=== PATIENT | female | born 1995 | race African-American/Black ===

== ENCOUNTER 2017-01-09 17:27 | Emergency (ER) | payer OTHER, MEDICAID ==
[~2017-01-09] VITALS: Ht 165.1 cm; Wt 60.0 kg
[~2017-01-09 17:27] MED LIST: ACYC800T PO; IBUP600 PO; OXYC1SOL5 PO; PREN0.01 PO; PREN1CAP PO
[2017-01-09 17:28] VITALS: BP 113/85; PULSE 113; RESP 20; TEMP 99; O2SAT 100
[2017-01-09] MEDS ORDERED: ACETAMINOPHEN 325 MG TAB PO ONE (18:15)
[2017-01-09 18:20] LABS: BACTERIA, URINE RARE /hpf; BLOOD, URINE NEG (NEG); COMMENT (UR) CULT NOT INDICATED; CULTURE IF INDICATED CULT NOT INDICATED; GLUCOSE,URINE NEG (NEG); HYALINE CAST, URINE 1 /lpf (RARE); KETONE, URINE TRACE mg/dL (NEG); MUCUS URINE FEW /lpf (OCC); NITRITE,URINE NEG (NEG); PH, URINE 5.5 (5.0-8.5); SQUAMOUS EPITHELIAL CELL URINE 2 /hpf (0-5); URINE COLOR YELLOW (YELLW/STRAW)
[2017-01-09 18:48] LABS: BETA HCG QUANT 1571 MIU/ML (0-5)
--- NOTE | 2017-01-09 19:18 | RADRPT ---
EXAM DATE/TIME: 01/09/2017 18:20 [facility] COMPARISON: No previous studies available for comparison. INDICATIONS : Pelvic pain with . LAB(S): Beta-hC MEDICAL HISTORY : . Miscarriage. SURGICAL HISTORY : section. ENCOUNTER: Initial ACUITY: 1 day PAIN SCORE: 6/10 LOCATION: Bilateral pelvis MEASUREMENTS: UTERUS: 10.1 x 7.7 x 4.0 cm ENDOMETRIAL STRIPE: 14 mm RIGHT OVARY: 3.4 x 2.4 x 1.4 cm LEFT OVARY: 4.5 x 3.5 x 3.2 cm FREE FLUID: Yes Trace amount in posterior cul de sac. CROWN RUMP LENGTH: Non visualized. = WKS DAYS FHR: Non visualized. BPM FINDINGS: UTERUS: The uterus has a bicornuate appearance. There is a 3 cm cystic area seen in the left horn. There is a tiny 2 mm area of fluid or cystic change in the right horn. An intrauterine gestation cannot be conf irmed at this size. RIGHT OVARY: Ovary contains no mass or significant cystic lesion. LEFT OVARY: There is a 3.2 x 3.1 x 2.3 cm complex predominantly cystic mass seen at the left adnexa. MISCELLANEOUS: There is minimal free fluid seen in the cul-de-sac. CONCLUSION: 1. An intrauterine gestation is not confirmed. There are tiny cystic areas seen in the endometrial ca vity. 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 2. 3.2 cm complex, cystic mass the left adnexa. This is nonspecific. A prominent follicle, corpus lut eal cyst, or even ectopic although this appearance. Franco Wayne MD on January 09, 2017 at 19:10 Board Certified Radiologist. This report was verified electronically.
--- NOTE | 2017-01-09 19:49 | PD ---
HPI Chief Complaint: Related Problem Time Seen by Provider: 17:44 Travel History International Travel<30 days: No Contact w/Intl Traveler<30days: No Traveled to known affect area: No History of Present Illness HPI 21-year-old female that presents to the ED for evaluation of abdominal pain. Per patient is about 5 weeks . She denies any vaginal bleeding or discharge. Per patient the pain is 6 out of 10. Per patient he comes and goes. 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 She states that she is not sure she wants to keep this . She denies any nausea or vomiting. She denies any bowel movement issues. No urinary issues. Has not seen anybody for this. She has no MATERIAL SPREADER at this time. She did try to see a CARPET OR RUG LAYER HELPER on her own but they're all booked per patient. Has an allergy to shellfish. PFSH Past Medical History Cardiovascular Problems: Yes Diminished Hearing: No ?: LMP: 12/04/16 : 4 Para: 2 Miscarriage: 1 Past Surgical History Section: Yes Social History Alcohol Use: No Tobacco Use: No Substance Use: No Allergies-Medications (Allergen,Severity, Reaction): Coded Allergies: shellfish derived (Unverified Allergy, Severe, swelling of throat and mouth, 10/08/16) Reported Meds & Prescriptions Reported Meds & Active Scripts Active Monistat 3 Vaginal Cream (Miconazole 3 Vaginal Cream) 4 % Cream 1 Appl VAGINAL HS Oxycodone/Acetaminophen 5-325 mg/5Ml (Oxycodone W/ Acetaminophen) 5 mg/325 mg Tab 1 Tab PO Q4H PRN Review of Systems Except as stated in HPI: all other systems reviewed are Neg Physical Exam Narrative GENERAL: SKIN: Warm and dry. HEAD: Atraumatic. Normocephalic. EYES: Pupils equal and round. No scleral icterus. No injection or drainage. ENT: No nasal bleeding or discharge. Mucous membranes pink and moist. Tongue is midline. No uvula deviation. NECK: Trachea midline. No JVD. CARDIOVASCULAR: Regular rate and rhythm. No murmurs, S3, S4. RESPIRATORY: No accessory muscle use. Clear to auscultation. Breath sounds equal bilaterally. GASTROINTESTINAL: Abdomen soft, non-tender, nondistended. Hepatic and splenic margins not palpable. Pelvic exam: Seen with female nurse present. No obvious skin lesions noted. Patient does have some whitish vaginal discharge coming from the clitoris. No adnexal deformity but she does have some tenderness to deep palpation on the pelvic area. MUSCULOSKELETAL: Extremities without clubbing, cyanosis, or edema. No obvious deformities. Full range of motion of the upper and lower extremities bilaterally. 2+ pulses bilaterally. NEUROLOGICAL: Awake and alert. No obvious cranial nerve deficits. Motor grossly within normal limits. Five out of 5 muscle strength in the arms and legs. Normal speech. PSYCHIATRIC: Appropriate mood and affect; insight and judgment normal. Data Data Last Documented VS Vital Signs Date Time Temp Pulse Resp B/P (MAP) Pulse Ox O2 Delivery O2 Flow Rate FiO2 01/09/17 17:28 99.0 113 20 113/85 (94) 100 Room Air Orders Orders Beta Hcg (Quant/Titer) (01/09/17 17:44) Gc And Chlamydia Pcr (01/09/17 17:44) Us Pelvis (Ques Pr/Ect)W Trans (01/09/17 ) Wet Prep Profile (01/09/17 17:44) Urinalysis - C+S If Indicated (01/09/17 17:44) Ed Urine Pregnancytest Poc (01/09/17 17:44) Acetaminophen (Tylenol) (01/09/17 18:15) Ed Discharge Order (01/09/17 19:52) Labs Laboratory Tests Test 01/09/17 18:05 01/09/17 19:25 Urine Color YELLOW Urine Turbidity CLEAR Urine pH 5.5 Urine Specific [place] 1.015 Urine Protein NEG mg/dL Urine Glucose (UA) NEG mg/dL Urine Ketones TRACE mg/dL Urine Occult Blood NEG Urine Nitrite NEG Urine Bilirubin NEG Urine Urobilinogen LESS THAN 2.0 MG/DL Urine Leukocyte Esterase NEG Urine RBC 1 /hpf Urine WBC 3 /hpf Urine Squamous Epithelial Cells 2 /hpf Urine Bacteria RARE /hpf Urine Hyaline Casts 1 /lpf Urine Mucus FEW /lpf Microscopic Urinalysis Comment CULT NOT INDICATED Human Chorionic Gonadotropin, Quant 1571 MIU/ML Clue Cells (Wet Prep) NONE SEEN Vaginal Trichomonas (Wet Prep) NONE SEEN Vaginal Yeast (Wet Prep) PRESENT MDM Medical Decision Making Medical Screen Exam Complete: Yes Emergency Medical Condition: Yes Medical Record Reviewed: Yes Interpretation(s) UA negative HCG of 1500s Last Impressions Pelvis Ultrasound 01/09/17 0000 Signed Impressions: Service Date/Time: December 18:20 - CONCLUSION: 1. An intrauterine gestation is not confirmed. There are tiny cystic areas seen in the endometrial cavity. 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 2. 3.2 cm complex, cystic mass the left adnexa. This is nonspecific. A prominent follicle , corpus luteal cyst, or even ectopic although this appearance. Franco Wayne MD wet prep positive for yeast Differential Diagnosis Pelvic pain versus vaginal discharge versus vaginal infection versus vaginitis versus ectopic Narrative Course 21-year-old female that presents to the ED for evaluation of pelvic pain. Patient was properly examined and was found to have signs and symptoms consistent with appears to be pelvic pain. Patient is . Ultrasound and labs were ordered. Pelvic exam did show some vaginal discharge. Wet prep was sent for this. Labs and imaging show unclear if I feel versus ectopic. Case was discussed with my attending Dr. Hopper who was made aware of findings and recommends speaking with OB hospitalist. Spoke with Dr. Sawyer who recommends recheck in 48 hours for repeat beta as well as ultrasound. Patient was told this and agrees with plan. Wet prep showed Diagnosis Primary Impression: Pelvic pain affecting Qualified Codes: O26.891 - Other specified related conditions, first trimester; R10.2 - Pelvic and perineal pain Additional Impressions: Yeast vaginitis Left ovarian cyst Patient Instructions: General Instructions Additional Instructions: Get rechecked in 2 days with an ultrasound and beta hcg. Your HCG was 1500s. F/ u with PCP. Take med as prescribed. Tylenol for pain. See ED if worsening symptoms. Med/Other Pt SpecificInfo: Prescription(s) given Scripts Miconazole 3 Vaginal Cream (Monistat 3 Vaginal Cream) 4 % Cream 1 APPL VAGINAL HS for Infection, #1 BOX 0 Refills Prov: Nadine Hopper DO 01/09/17 Disposition: 01 DISCHARGE HOME Condition: Stable Evans Valentin Jan 09, 2017 19:49
[2017-01-09] MEDS ORDERED: MICO1CRE2 VAGINAL (19:51)
[2017-01-09 22:22] LABS: CHLAMYDIA PCR NOT DETECTED (NOT DETECT); NEISSERIA PCR NOT DETECTED (NOT DETECT)
== END 2017-01-09 20:20 | disposition home or self-care (01) ==
LOC: NEPD 17:27
DX: O34.81 Maternal care for other abnormalities of pelvic organs, first trimester (principal); N83.202 Unspecified ovarian cyst, left side; N76.0 Acute vaginitis; Z3A.01 Less than 8 weeks gestation of pregnancy; Z34.91 Encounter for supervision of normal pregnancy, unspecified, first trimester
CPT/HCPCS: 76700; 76817; 81001; 84702; 84703; 87210; 87491; 87591; 99284

== ENCOUNTER 2017-01-11 17:00 | Emergency (ER) | payer OTHER, MEDICAID ==
[~2017-01-11] VITALS: Ht 165.1 cm; Wt 58.0 kg
[~2017-01-11 17:00] MED LIST changes: -ACYC800T PO; -IBUP600 PO; +MICO1CRE2 VAGINAL; -PREN0.01 PO; -PREN1CAP PO
[2017-01-11 17:02] VITALS: BP 112/74; PULSE 108; RESP 16; TEMP 98.7; O2SAT 100
[2017-01-11] MEDS ORDERED: OXYC1TAB35 PO (17:55)
--- NOTE | 2017-01-11 18:08 | PD ---
HPI Chief Complaint: Related Problem Time Seen by Provider: 17:41 Travel History International Travel<30 days: No Contact w/Intl Traveler<30days: No Traveled to known affect area: No History of Present Illness HPI 21-year-old female complains of low abdominal pain and pelvic pain. Patient is about 5 weeks by date. Patient was seen in emergency room 2 days ago with low abdominal pain and pelvic pain. Patient denies any vaginal discharge or bleeding. Beta-hCG 1571. Pelvic ultrasound with transvaginal shows tiny cystic area in the endometrial cavity. Patient had bicornuate uterus. 3.2 cm complex cystic mass left adnexa. Patient was advised to follow-up with personal physician. Patient was seen by personal physician yesterday and advised to go back to ED for evaluation. Patient states that she had persistent pain on the lower abdomen suprapubic area. Patient states that she passed a small amount of whitish tissue this morning. Patient denies any vaginal bleeding. Patient denies any dysuria or frequency. Patient denies any fever chills. Patient denies any back pain. PFSH Past Medical History Cardiovascular Problems: Yes Diminished Hearing: No ?: : 4 Para: 2 Miscarriage: 1 Past Surgical History Section: Yes Social History Alcohol Use: No Tobacco Use: No Substance Use: No Allergies-Medications (Allergen,Severity, Reaction): Coded Allergies: shellfish derived (Unverified Allergy, Severe, swelling of throat and mouth, 01/11/17) Reported Meds & Prescriptions Reported Meds & Active Scripts Active Monistat 3 Vaginal Cream (Miconazole 3 Vaginal Cream) 4 % Cream 1 Appl VAGINAL HS Reported Oxycodone-Acetaminophen 7.5-325 mg Tab 1 Tab PO Q6H PRN Review of Systems General / Constitutional: No: Fever Eyes: No: Visual changes HENT: No: Headaches Cardiovascular: No: Chest Pain or Discomfort Respiratory: No: Shortness of Breath Gastrointestinal: Positive: Abdominal Pain Genitourinary: Positive: Pelvic Pain, No: Dysuria Musculoskeletal: No: Pain Skin: No Rash Neurologic: No: Weakness Psychiatric: No: Depression Endocrine: No: Polydipsia Hematologic/Lymphatic: No: Easy Bruising Physical Exam Narrative GENERAL: Well-nourished, well-developed patient. SKIN: Focused skin assessment warm/dry. HEAD: Normocephalic. EYES: No scleral icterus. No injection or drainage. NECK: Supple, trachea midline. No JVD or lymphadenopathy. CARDIOVASCULAR: Regular rate and rhythm without murmurs, gallops, or rubs. RESPIRATORY: Breath sounds equal bilaterally. No accessory muscle use. GASTROINTESTINAL: Abdomen soft, nondistended. Patient has mild tenderness on palpation suprapubic area. No rebound tenderness. No mass. MUSCULOSKELETAL: No cyanosis, or edema. BACK: Nontender without obvious deformity. No CVA tenderness. Neurologic exam normal. Data Data Last Documented VS Vital Signs Date Time Temp Pulse Resp B/P (MAP) Pulse Ox O2 Delivery O2 Flow Rate FiO2 01/11/17 17:02 98.7 108 16 112/74 (87) 100 Room Air Orders Orders Beta Hcg (Quant/Titer) (01/11/17 17:52) Iv Access Insert/Monitor (01/11/17 17:52) Ecg Monitoring (01/11/17 17:52) Us Pelvis (Ques Pr/Ect)W Trans (01/11/17 17:52) MDM Medical Decision Making Medical Screen Exam Complete: Yes Emergency Medical Condition: Yes Differential Diagnosis Differential diagnosis including threatened AB, incomplete AB, completed AB, ectopic . Narrative Course 21-year-old female with low abdominal pelvic pain. Patient is about 5 weeks by dates. Ultrasound and beta hCG done 2 days ago inconclusive for ectopic . Daren Hampton MD Jan 11, 2017 18:08
[2017-01-11 19:08] LABS: BETA HCG QUANT 3051 MIU/ML (0-5)
--- NOTE | 2017-01-11 19:32 | RADRPT ---
EXAM DATE/TIME: 01/11/2017 18:54 [facility] COMPARISON: US PELVIS (QUEST PREG/ECTOPIC) W/TRANSVAG, January 09, 2017, 18:20. INDICATIONS : Pelvic pain. LAB(S): Beta-hC MEDICAL HISTORY : . Miscarriage. SURGICAL HISTORY : section. ENCOUNTER: Subsequent ACUITY: 1 day PAIN SCORE: 6/10 LOCATION: Bilateral pelvis MEASUREMENTS: UTERUS: 9.1 x 7.7 x 4.6 cm ENDOMETRIAL STRIPE: 12 mm RIGHT OVARY: 3.0 x 2.2 x 1.5 cm LEFT OVARY: 3.2 x 3.0 x 2.9 cm FREE FLUID: No FINDINGS: Bicornuate uterus again noted. On the left, a 0.5 x 0.6 x 0.6 cm gestational sac is now evident, too early to date. No perceptible yolk sac or pole at this time. Right ovary within normal limits. 2.5 cm cyst again seen of the left ovary, smaller in the interim. CONCLUSION: 1. Bicornuate uterus. Early gestational sac now seen within the uterine cavity on the left. This is t oo early to date. 2. The left ovarian cyst is smaller, likely a corpus luteal cyst. Ectopic is considered unlikely. 3. Normal right ovary. 4. No free fluid. Franco Shanks MD on January 11, 2017 at 19:28 Board Certified Radiologist. This report was verified electronically.
--- NOTE | 2017-01-11 19:47 | PD ---
Data Data Last Documented VS Vital Signs Date Time Temp Pulse Resp B/P (MAP) Pulse Ox O2 Delivery O2 Flow Rate FiO2 01/11/17 17:02 98.7 108 16 112/74 (87) 100 Room Air Orders Orders Beta Hcg (Quant/Titer) (01/11/17 17:52) Iv Access Insert/Monitor (01/11/17 17:52) Ecg Monitoring (01/11/17 17:52) Us Pelvis (Ques Pr/Ect)W Trans (01/11/17 17:52) Ed Discharge Order (01/11/17 19:47) Mandatory Outpatient Referral (01/11/17 20:00) Labs Laboratory Tests Test 01/11/17 18:00 Human Chorionic Gonadotropin, Quant 3051 MIU/ML [facility] Medical Record Reviewed: Yes Supervised Visit with CLEMENCIA: No Diagnosis Primary Impression: Pelvic pain affecting Qualified Codes: O26.891 - Other specified related conditions, first trimester; R10.2 - Pelvic and perineal pain Additional Impression: Normal IUP (intrauterine ) on ultrasound Qualified Codes: Z34.91 - Encounter for supervision of normal , unspecified, first trimester Referrals: Marketing Support Specialist 2 days Additional Instruction: Med/Other Pt SpecificInfo: Prescription(s) given Scripts Vit-Iron Carbonyl ( Plus Iron 29-1 mg) 29 Mg Iron-1 Mg Tab 1 TAB PO DAILY for Nutritional Supplement, #30 TAB 3 Refills Prov: Bobby Cano MD 01/11/17 Disposition: 01 DISCHARGE HOME Condition: Stable Bobby Cano MD Jan 11, 2017 19:47
[2017-01-11] MEDS ORDERED: PREN29TA PO (20:14)
== END 2017-01-11 20:15 | disposition home or self-care (01) ==
LOC: NEPE 17:00
DX: O26.891 Other specified pregnancy related conditions, first trimester (principal); R10.2 Pelvic and perineal pain
CPT/HCPCS: 76700; 76817; 84702

== ENCOUNTER 2017-01-21 17:49 | Emergency (ER) | payer OTHER ==
[~2017-01-21] VITALS: Ht 165.1 cm; Wt 60.0 kg
[~2017-01-21 17:49] MED LIST changes: -OXYC1SOL5 PO; +OXYC1TAB35 PO; +PREN29TA PO
[2017-01-21 17:52] VITALS: BP 125/70; PULSE 109; RESP 16; TEMP 98.4; O2SAT 100
--- NOTE | 2017-01-21 18:35 | PD ---
HPI Chief Complaint: Related Problem Time Seen by Provider: 18:05 Travel History International Travel<30 days: No Contact w/Intl Traveler<30days: No Traveled to known affect area: No History of Present Illness HPI 21-year-old approximately 7 week female presents to the emergency room for the third time in 12 days for evaluation of pelvic cramping. The last 2 times she presented, she did not have any vaginal bleeding but she has had some spotting that started today. Patient had 2 transvaginal ultrasounds on January 09 of January 11 with the latter showing intrauterine . She opted to terminate the and was given the name of an OB to follow up with. The OB told her that they do not perform abortions. She found another OB to follow up with but cannot see that person for 5-6 weeks. PFSH Past Medical History Medical History: Denies Significant Hx Cardiovascular Problems: Yes Diminished Hearing: No Tetanus Vaccination: < 5 Years ?: LMP: 7 WEEKS : 3 Para: 2 Miscarriage: 1 Past Surgical History Surgical History: No Previous Surgery Section: Yes Social History Alcohol Use: No Tobacco Use: No Substance Use: No Allergies-Medications (Allergen,Severity, Reaction): Coded Allergies: shellfish derived (Unverified Allergy, Severe, swelling of throat and mouth, 01/21/17) Reported Meds & Prescriptions Reported Meds & Active Scripts Active Plus Iron 29-1 mg ( Vit-Iron Carbonyl) 29 Mg Iron-1 Mg Tab 1 Tab PO DAILY Monistat 3 Vaginal Cream (Miconazole 3 Vaginal Cream) 4 % Cream 1 Appl VAGINAL HS Reported Oxycodone-Acetaminophen 7.5-325 mg Tab 1 Tab PO Q6H PRN Review of Systems Except as stated in HPI: all other systems reviewed are Neg Physical Exam Narrative GENERAL: Well-nourished, well-developed female in no acute distress. Afebrile. Ambulatory. SKIN: Focused skin assessment warm/dry. HEAD: Normocephalic. EYES: No scleral icterus. No injection or drainage. NECK: Supple, trachea midline. No JVD or lymphadenopathy. CARDIOVASCULAR: Regular rate and rhythm without murmurs, gallops, or rubs. RESPIRATORY: Breath sounds equal bilaterally. No accessory muscle use. GASTROINTESTINAL: Abdomen soft, non-tender, nondistended. Data Data Last Documented VS Vital Signs Date Time Temp Pulse Resp B/P (MAP) Pulse Ox O2 Delivery O2 Flow Rate FiO2 01/21/17 17:52 98.4 109 16 125/70 (88) 100 Room Air MDM Medical Decision Making Medical Screen Exam Complete: Yes Emergency Medical Condition: Yes Medical Record Reviewed: Yes Differential Diagnosis Pelvic pain affecting , ovarian cyst, ectopic unlikely, spontaneous Narrative Course 21-year-old proximally 7 week female presents to the emergency room for evaluation of vaginal spotting and cramping. Patient has had 2 ultrasounds and beta hCGs drawn in the past 12 days with confirmed intrauterine . She followed up with an OB requesting an but OB would not perform it. Bedside ultrasound shows very early intrauterine in bicornate uterus with heartbeat of 140 bpm. She was reassured that spotting in early can be caused by many things the most concerning of which is ectopic which she has had ruled out. She was told to follow up with another OB or [facility] to proceed with and take Tylenol and Motrin for pain. Informed that the emergency room does not routinely provide abortions. She understands and agrees to plan. Diagnosis Primary Impression: Threatened miscarriage in early Referrals: Primary Care Physician Additional Instructions: Tylenol for pain. Follow-up with OB or [facility]. Disposition: 01 DISCHARGE HOME Condition: Stable Jill Ball Jan 21, 2017 18:35
[2017-01-30] MEDS ORDERED: DOXY10TA PO (10:23)
== END 2017-01-21 19:00 | disposition home or self-care (01) ==
LOC: NEPD 17:49
DX: O20.0 Threatened abortion (principal); Z3A.01 Less than 8 weeks gestation of pregnancy
CPT/HCPCS: 99282

== ENCOUNTER 2017-02-10 10:36 | Emergency (ER) | payer MEDICAID, OTHER ==
[~2017-02-10] VITALS: Ht 165.1 cm; Wt 60.0 kg
[~2017-02-10 10:36] MED LIST changes: +DOXY10TA PO; -MICO1CRE2 VAGINAL; -OXYC1TAB35 PO; +TERC1SUP VAGINAL
[2017-02-10 10:54] VITALS: BP 137/55; PULSE 99; RESP 20; TEMP 97.6; O2SAT 99
[2017-02-10] MEDS ORDERED: SODIUM CHLOR 0.9% 1000 ML INJ 1,000 ML IV SCH (11:27)
[2017-02-10] MEDS ORDERED: ONDANSETRON HCL 4 MG/2 ML VIAL IVP ONE (11:30)
[2017-02-10] MEDS ORDERED: SODIUM CHLORIDE 0.9% FLUSH 10 ML FLUSH IV FLUSH PRN (11:30)
[2017-02-10] MEDS ORDERED: MORPHINE SULFATE 4 MG/ML INJ IV PUSH ONE (11:30)
--- NOTE | 2017-02-10 11:39 | PD ---
HPI . Palpitations Chief Complaint: Cardiac Complaint Time Seen by Provider: 11:19 Travel History International Travel<30 days: No Contact w/Intl Traveler<30days: No Traveled to known affect area: No History of Present Illness HPI This patient presents with chief complaint of feeling lightheaded and dizzy and having palpitations. Onset was shortly prior to presentation. She states that she is 10 weeks and that she developed right upper quadrant abdominal pain earlier today. She describes sharp pain which she rates 10/10. The pain waxes and wanes. She states that she subsequently developed the lightheadedness. 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 They checked her heart rate, blood pressure and sugar. She was found to be tachycardic and was subsequently sent to us for evaluation. The patient reports a history of tachycardia. The etiology of the tachycardia is unknown to her. [facility] Past Medical History Cardiovascular Problems: Yes (SINUS TACHYCARDIA, CHEST PAIN) Diminished Hearing: No Tetanus Vaccination: < 5 Years ?: : 2 Para: 2 Miscarriage: 1 Past Surgical History Section: Yes Genitourinary Surgery: Yes (c- section) Social History Alcohol Use: No Tobacco Use: No Substance Use: No Allergies-Medications (Allergen,Severity, Reaction): Coded Allergies: shellfish derived (Unverified Allergy, Severe, swelling of throat and mouth, 02/10/17) Reported Meds & Prescriptions Reported Meds & Active Scripts Active Review of Systems Except as stated in HPI: all other systems reviewed are Neg General / Constitutional: No: Fever, Chills HENT: Positive: Lightheadedness Cardiovascular: Positive: Palpitations Gastrointestinal: Positive: Abdominal Pain, No: Nausea, Vomiting, Diarrhea Genitourinary: No: Urgency, Frequency, Dysuria Physical Exam Narrative GENERAL: Awake and alert and in no acute distress. SKIN: warm/dry. HEAD: Normocephalic. Atraumatic. EYES: Pupils equal and round. No scleral icterus. No injection or drainage. ENT: No nasal bleeding or discharge. Mucous membranes pink and moist. NECK: Trachea midline. Full range of motion without pain.. CARDIOVASCULAR: Sinus tachycardia at about 125. Heart sounds are normal. RESPIRATORY: No accessory muscle use. Clear to auscultation. Breath sounds equal bilaterally. GASTROINTESTINAL: Abdomen soft. Epigastric tenderness which was not reproducible. That is, she was tender when I palpated her epigastrium initially but then I could not elicit any further tenderness on repeat exam. Bowel sounds present. Nondistended. : No CVA tenderness. MUSCULOSKELETAL: No obvious deformities. NEUROLOGICAL: Awake and alert. No obvious cranial nerve deficits. Motor grossly within normal limits. Normal speech. PSYCHIATRIC: Appropriate mood and affect; insight and judgment normal. Data Data Last Documented VS Vital Signs Date Time Temp Pulse Resp B/P (MAP) Pulse Ox O2 Delivery O2 Flow Rate FiO2 02/10/17 11:21 99 02/10/17 10:54 97.6 20 137/55 (82) 99 Orders Orders Complete Blood Count With Diff (02/10/17 11:27) Comprehensive Metabolic Panel (02/10/17 11:27) Lipase (02/10/17 11:27) Urinalysis - C+S If Indicated (02/10/17 11:27) Us Abdomen Gallbladder (02/10/17 ) Iv Access Insert/Monitor (02/10/17 11:27) Ecg Monitoring (02/10/17 11:27) Oximetry (02/10/17 11:27) Morphine Inj (Morphine Inj) (02/10/17 11:30) Ondansetron Inj (Zofran Inj) (02/10/17 11:30) Sodium Chlor 0.9% 1000 Ml Inj (Ns 1000 M (02/10/17 11:27) Sodium Chloride 0.9% Flush (Ns Flush) (02/10/17 11:30) Labs Laboratory Tests Test 02/10/17 11:44 02/10/17 11:48 Urine Color YELLOW Urine Turbidity CLEAR Urine pH 8.0 Urine Specific [place] 1.018 Urine Protein TRACE mg/dL Urine Glucose (UA) NEG mg/dL Urine Ketones NEG mg/dL Urine Occult Blood NEG Urine Nitrite NEG Urine Bilirubin NEG Urine Urobilinogen LESS THAN 2.0 MG/DL Urine Leukocyte Esterase NEG Urine RBC LESS THAN 1 /hpf Urine WBC 4 /hpf Urine Squamous Epithelial Cells 1 /hpf Urine Mucus FEW /lpf Microscopic Urinalysis Comment CULT NOT INDICATED White Blood Count 7.4 TH/MM3 Red Blood Count 4.22 MIL/MM3 Hemoglobin 11.6 GM/DL Hematocrit 34.5 % Mean Corpuscular Volume 81.7 FL Mean Corpuscular Hemoglobin 27.4 PG Mean Corpuscular Hemoglobin Concent 33.5 % Red Cell Distribution Width 13.1 % Platelet Count 243 TH/MM3 Mean Platelet Volume 9.3 FL Neutrophils (%) (Auto) 64.2 % Lymphocytes (%) (Auto) 26.8 % Monocytes (%) (Auto) 7.1 % Eosinophils (%) (Auto) 1.5 % Basophils (%) (Auto) 0.4 % Neutrophils # (Auto) 4.8 TH/MM3 Lymphocytes # (Auto) 2.0 TH/MM3 Monocytes # (Auto) 0.5 TH/MM3 Eosinophils # (Auto) 0.1 TH/MM3 Basophils # (Auto) 0.0 TH/MM3 CBC Comment DIFF FINAL Differential Comment Blood Urea Nitrogen 6 MG/DL Creatinine 0.46 MG/DL Random Glucose 73 MG/DL Total Protein 7.1 GM/DL Albumin 3.6 GM/DL Calcium Level 8.6 MG/DL Alkaline Phosphatase 83 U/L Aspartate Amino Transf (AST/SGOT) 18 U/L Alanine Aminotransferase (ALT/SGPT) 25 U/L Total Bilirubin 1.0 MG/DL Sodium Level 134 MEQ/L Potassium Level 3.2 MEQ/L Chloride Level 101 MEQ/L Carbon Dioxide Level 25.2 MEQ/L Anion Gap 8 MEQ/L Estimat Glomerular Filtration Rate 207 ML/MIN Lipase 55 U/L MDM Medical Decision Making Medical Screen Exam Complete: Yes Emergency Medical Condition: Yes Medical Record Reviewed: Yes (this patient was seen here on 01/09, 01/11 and with pelvic pain. She has had 2 ultrasounds which showed an IUP.) Differential Diagnosis Differential diagnosis of abdominal pain includes but is not limited to gastritis, pancreatitis, hepatitis, gastroenteritis, gallbladder disease, constipation, urinary retention, UTI, peptic ulcer disease, diverticulitis or appendicitis Differential diagnosis of tachycardia includes but is not limited to PSVT, atrial fibrillation with a rapid ventricular response, sinus tachycardia (due to hypovolemia, anemia, thyrotoxicosis, PE) Narrative Course This patient presents with the chief complaint now of tachycardia but with the chief complaint earlier today of right upper quadrant abdominal pain. She is 10 weeks . Her tachycardia is sinus and is most likely related either to pain or to anxiety. I have ordered an ultrasound of her gallbladder. Routine labs have been ordered. She'll be treated with IV morphine and Zofran. Vital Signs Date Time Temp Pulse Resp B/P (MAP) Pulse Ox O2 Delivery O2 Flow Rate FiO2 02/10/17 11:21 99 02/10/17 10:54 97.6 99 20 137/55 (82) 99 CBC & BMP Diagram 02/10/17 11:48 Total Protein 7.1, Albumin 3.6, Calcium Level 8.6, Alkaline Phosphatase 83, Aspartate Amino Transf (AST/SGOT) 18, Alanine Aminotransferase (ALT/SGPT) 25, Total Bilirubin 1.0 UA neg. US neg. The history, exam, diagnostic testing, and current condition do not suggest any significant pathology to warrant further testing, continued ED treatment, admission, or surgical evaluation at this point. No EMC was found. The patient 's condition is stable and appropriate for discharge. Diagnosis Primary Impression: Sinus tachycardia Additional Impressions: Anxiety Right upper quadrant abdominal pain Intrauterine Patient Instructions: Abdominal Pain (ED), Anxiety (DC), General Instructions Disposition: 01 DISCHARGE HOME Condition: Stable Sharon Madden MD Feb 10, 2017 11:39
[2017-02-10 12:17] LABS: AUTOMATED NEUTROPHIL # 4.8 TH/MM3 (1.8-7.7); BASOPHIL % 0.4 % (0.0-2.0); EOSINOPHIL # 0.1 TH/MM3 (0-0.4); EOSINOPHIL % 1.5 % (0.0-4.0); HEMATOCRIT 34.5 % (35.0-46.0); HEMOGLOBIN 11.6 GM/DL (11.6-15.3); LYMPH % 26.8 % (9.0-44.0); MEAN CELL VOLUME 81.7 FL (80.0-100.0); MEAN CORPUSCULAR HEMOGLOBIN 27.4 PG (27.0-34.0); MEAN CORPUSCULAR HGB CONC 33.5 % (32.0-36.0); MEAN PLATELET VOLUME 9.3 FL (7.0-11.0); MONO % 7.1 % (0.0-8.0); MONOCYTE # 0.5 TH/MM3 (0-0.9); NEUT % 64.2 % (16.0-70.0); PLATELET COUNT 243 TH/MM3 (150-450); RED BLOOD COUNT 4.22 MIL/MM3 (4.00-5.30); RED CELL DISTRIBUTION WIDTH 13.1 % (11.6-17.2); WHITE BLOOD COUNT 7.4 TH/MM3 (4.0-11.0)
[2017-02-10 12:38] LABS: ALBUMIN 3.6 GM/DL (3.4-5.0); AST (GOT) 18 U/L (15-37); BICARBONATE 25.2 MEQ/L (21.0-32.0); BLOOD UREA NITROGEN 6 MG/DL (7-18); CALCIUM 8.6 MG/DL (8.5-10.1); CHLORIDE 101 MEQ/L (98-107); CREATININE 0.46 MG/DL (0.50-1.00); GLOMERULAR FILTRATION RATE 207 ML/MIN (>89); GLUCOSE,RANDOM 73 MG/DL (74-106); LIPASE 55 U/L (73-393); SODIUM (NA) 134 MEQ/L (136-145)
[2017-02-10 12:39] LABS: ALT (GPT) 25 U/L (10-53)
[2017-02-10 12:41] LABS: ALKALINE PHOSPHATASE 83 U/L (45-117); TOTAL PROTEIN 7.1 GM/DL (6.4-8.2)
[2017-02-10 12:47] LABS: BILIRUBIN, URINE NEG (NEG); BLOOD, URINE NEG (NEG); GLUCOSE,URINE NEG (NEG); KETONE, URINE NEG (NEG); MUCUS URINE FEW /lpf (OCC); NITRITE,URINE NEG (NEG); SQUAMOUS EPITHELIAL CELL URINE 1 /hpf (0-5); URINE COLOR YELLOW (YELLW/STRAW); URINE LEUKOCYTE ESTERASE NEG (NEG)
--- NOTE | 2017-02-10 13:14 | RADRPT ---
EXAM DATE/TIME: 02/10/2017 12:01 [facility] COMPARISON: No previous studies available for comparison. INDICATIONS : Right upper quadrant pain. MEDICAL HISTORY : . Tachycardia. SURGICAL HISTORY : section. ENCOUNTER: Initial ACUITY: 1 day PAIN SCORE: 1/10 LOCATION: Right upper quadrant MEASUREMENTS: LIVER: 16.2 cm length COMMON DUCT: 3 mm RIGHT KIDNEY: 11.7 x 5.9 x 5.5 cm FINDINGS: LIVER: Normal echotexture without focal lesion or ductal dilatation. COMMON DUCT: No intraluminal mass or stone visualized. GALLBLADDER: Contains no stones, demonstrates no wall thickening or pericholecystic fluid. PANCREAS: The visualized portions are within normal limits. RIGHT KIDNEY: No evidence of hydronephrosis, stone, or mass. CONCLUSION: Negative exam. Jose Garcia MD on February 10, 2017 at 13:12 Board Certified Radiologist. This report was verified electronically.
== END 2017-02-10 14:40 | disposition home or self-care (01) ==
LOC: NEPE 10:36
DX: O26.891 Other specified pregnancy related conditions, first trimester (principal); R00.0 Tachycardia, unspecified; R10.11 Right upper quadrant pain; O99.341 Other mental disorders complicating pregnancy, first trimester; F41.9 Anxiety disorder, unspecified; Z3A.10 10 weeks gestation of pregnancy
CPT/HCPCS: 76705; 80053; 81001; 83690; 85025; 96374; 96375; 99285; J2270; J2405; J7030

== ENCOUNTER 2017-03-17 14:34 | Emergency (ER) | payer OTHER ==
[2017-03-17] MEDS: SODIUM CHLOR 0.9% 1000 ML INJ 1,000 ML IV (15:15)
== END 2017-03-17 15:34 | disposition home or self-care (01) ==
LOC: NEPD 14:34
DX: O99.519 Diseases of the respiratory system complicating pregnancy, unspecified trimester (principal); J11.1 Influenza due to unidentified influenza virus with other respiratory manifestations; Z3A.00 Weeks of gestation of pregnancy not specified
CPT/HCPCS: 99282

== ENCOUNTER 2017-03-31 19:43 | Emergency (ER) | payer OTHER ==
[~2017-03-31] VITALS: Ht 165.1 cm; Wt 55.0 kg
[~2017-03-31 19:43] MED LIST changes: -DOXY10TA PO; -PREN29TA PO; +PROM25TA10 PO; -TERC1SUP VAGINAL
--- NOTE | 2017-03-31 20:15 | PD.CONS ---
HPI Chief Complaint Patient fell at work and hit her right hip Date Seen: Mar 31, 2017 Time Seen: 20:10 Travel History International Travel<30 Days: No Contact w/Intl Traveler<30Days: No Known Affected Area: No History of Present Illness HPI This is 21-year-old black female at 17 weeks as to [facility]. That she was at work type symptoms water fell and hit her right hip. She's had no bleeding or leakage of fluid. She does have a tender sore hip. heart tones are in the 150s tonight Weeks Gestation: 17 Para: 1 : 2 History Obstetric History Obstetric History 2 vaginal deliveries Social History Alcohol Use: No Tobacco Use: No Substance Abuse: No Allergies-Medications (Allergen,Severity, Reaction): Coded Allergies: shellfish derived (Unverified Allergy, Severe, swelling of throat and mouth, 03/17/17) Home Meds Active Scripts Promethazine (Phenergan) 25 Mg Tablet, 25 MG PO Q6H Y for NAUSEA OR VOMITING, # 20 TAB 0 Refills Prov:Miguel Velazquez MD 03/05/17 Vit W/ Fe Polysacch C (Vitafol Ultra 29-0.6-0.4-200 mg) 29 Mg Iron-1 Mg -200 Mg Cap Prov:Miguel Velazquez MD 03/05/17 Review of Systems General / Constitutional: No: Fever, Weight Gain, Chills, Other Eyes: No: Diploplia, Blurred Vision, Visual changes, Pain, Photophobia HENT: No: Headaches, Vertigo, Lightheadedness Cardiovascular: No: Irregular Rhythm, Chest Pain or Discomfort, Palpitations, Tachycardia, Syncope, Varicosities, Edema, Cyanosis Respiratory: No: Cough, Short of Breath, Other Gastrointestinal: No: Nausea, Vomiting, Diarrhea Genitourinary: No: Decreased Urinary Output, Oliguria Musculoskeletal: Pain, No: Limited ROM, Weakness, Cramping, Edema Skin: No Rash, No Itching, No Dryness, No Lumps, No Change in Pigmentation, No Change in Nails, No Alopecia, No Lesions Neurologic: No: Weakness, Dizziness, Syncope, Focal Abnormalities, Coordination Problem, Headache, Slurred Speech, Seizures Psychiatric: No: Depression, Suicidal Ideations, Homicidal Ideation Endocrine: No: Heat Intolerance, Cold Intolerance, Polydipsia, Polyuria, Other Physical Exam Narrative GENERAL: Well-nourished, well-developed patient. SKIN: Warm and dry. HEAD: Normocephalic and atraumatic. EYES: No scleral icterus. No injection or drainage. ENT: No nasal drainage noted. Mucous membranes pink. Airway patent. NECK: Supple, trachea midline. No JVD. CARDIOVASCULAR: Regular rate and rhythm without murmurs, gallops, or rubs. RESPIRATORY: Breath sounds equal bilaterally. No accessory muscle use. BREASTS: Bilateral exam showed no masses , no retractions, no nipple discharge. 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 BACK: Nontender without obvious deformity. No CVA tenderness. NEUROLOGICAL: Awake and alert. Motor and sensory grossly within normal limits. Five out of 5 muscle strength in all muscle groups. Normal speech. MDM Interpretation(s) 21-year-old black female at 17 weeks who fell at work and hit her right hip. The fetus is doing well heart tones 150s she has no pain no pelvic problem no bleeding or leakage of fluid. She has a tender right hip its tip very tender to touch is where she fell and and landed Plan Plan to send the patient down stairs the main ER for an x-ray for hip make sure that some, Jacinda fracture or something needs to be evaluated for and obstetric standpoint there is no problem and Diagnosis: fall Disposition: EDGO-ED USE ONLY Condition: Stable Ronny Santos II, MD Mar 31, 2017 20:15
[2017-03-31 21:12] VITALS: BP 103/55; PULSE 94; RESP 18; TEMP 98.5; O2SAT 100
--- NOTE | 2017-03-31 21:33 | PD ---
HPI Chief Complaint: Fall Time Seen by Provider: 21:26 Travel History International Travel<30 days: No Contact w/Intl Traveler<30days: No Traveled to known affect area: No History of Present Illness HPI 21-year-old female at 17 weeks was sent here by the OB ED for x-ray of the right hip. Today she slipped and fell at work, landing directly on her right hip. Initially she was evaluated by Dr. Santos in the OB ED, cleared by their ED and sent here for x-ray imaging of the right hip. She reports pain in the lateral right hip which is aching and worse with ambulation. She denies any head injury. She denies any neck, back pain, abdominal pain, pain in the knees or the calves or the ankles or feet. She has no other complaints at this time. PFSH Past Medical History Anxiety: Yes Heart Rhythm Problems: Yes (tachycardia) Cardiovascular Problems: Yes (SINUS TACHYCARDIA, CHEST PAIN) Diminished Hearing: No Tetanus Vaccination: Unknown Influenza Vaccination: No ?: LMP: 12/04/2016 17 weeks : 2 Para: 2 Miscarriage: 1 Past Surgical History Section: Yes Genitourinary Surgery: Yes (c- section) Social History Alcohol Use: No Tobacco Use: No Substance Use: No Allergies-Medications (Allergen,Severity, Reaction): Coded Allergies: shellfish derived (Unverified Allergy, Severe, swelling of throat and mouth, 03/31/17) Reported Meds & Prescriptions Reported Meds & Active Scripts Active Phenergan (Promethazine HCl) 25 Mg Tablet 25 Mg PO Q6H PRN Vitafol Ultra 29-0.6-0.4-200 mg ( Vit W/ Fe Polysacch C) 29 Mg Iron-1 Mg -200 Mg Cap Review of Systems Except as stated in HPI: all other systems reviewed are Neg Physical Exam Narrative GENERAL: Well-developed well-nourished female in no acute distress SKIN: Warm and dry. There is no bruising or soft tissue swelling. HEAD: Atraumatic. Normocephalic. EYES: Pupils equal and round. No scleral icterus. No injection or drainage. ENT: No nasal bleeding or discharge. Mucous membranes pink and moist. NECK: Trachea midline. No JVD. CARDIOVASCULAR: Regular rate and rhythm. No murmur appreciated. RESPIRATORY: No accessory muscle use. Clear to auscultation. Breath sounds equal bilaterally. GASTROINTESTINAL: Abdomen soft, non-tender, nondistended. Hepatic and splenic margins not palpable. MUSCULOSKELETAL: No obvious deformities. There is point tenderness to palpation to the greater trochanter the right hip. The patient is full range of motion of the lower extremities. She has no tenderness to palpation to the iliac crest or lumbar spine. NEUROLOGICAL: Awake and alert. No obvious cranial nerve deficits. Motor grossly within normal limits. Normal speech. Data Data Last Documented VS Vital Signs Date Time Temp Pulse Resp B/P (MAP) Pulse Ox O2 Delivery O2 Flow Rate FiO2 03/31/17 21:12 98.5 94 18 103/55 (71) 100 Orders Orders Hip, Uni(Ap&Lat) W Ap Pelvis (03/31/17 ) [facility] Medical Decision Making Medical Screen Exam Complete: Yes Emergency Medical Condition: Yes Medical Record Reviewed: Yes Differential Diagnosis Trochanteric bursitis versus contusion versus fracture versus strain Narrative Course X-ray imaging of the pelvis/right hip was obtained revealing no acute bony abnormalities. The patient appears to have a contusion to her right hip. She is stable for discharge. Diagnosis Primary Impression: Contusion of right hip Patient Instructions: General Instructions Departure Forms: Tests/Procedures Additional Instructions: Take Tylenol for pain per dosing instructions on the bottle. Ice to the affected area several times a day 15 minutes at a time. Follow-up with primary care physician as needed and return for any emergent medical conditions. Med/Other Pt SpecificInfo: No Change to Meds Disposition: 01 DISCHARGE HOME Condition: Stable Johnathon Mack Mar 31, 2017 21:33
--- NOTE | 2017-03-31 22:09 | RADRPT ---
EXAM DATE/TIME: 03/31/2017 21:51 [facility] COMPARISON: No previous studies available for comparison. INDICATIONS : Hip and pelvic pain post fall. MEDICAL HISTORY : None. SURGICAL HISTORY : None. ENCOUNTER: Initial ACUITY: 1 day PAIN SCORE: 10/10 LOCATION: Right Hip and pelvis. FINDINGS: Examination of the right hip was performed with AP Pelvis. The primary and secondary trabecular rosibel patricia of the femoral neck is intact. The hip joint is of normal width without significant sclerosis or bony hypertrophy. The acetabulum is grossly intact. CONCLUSION: Normal examination for a patient of this age. No acute fracture or joint dislocation. Mane Glass MD on March 31, 2017 at 22:06 Board Certified Radiologist. This report was verified electronically.
[2017-04-01] MEDS ORDERED: TYLE325T PO (20:08)
== END 2017-03-31 21:07 | disposition left against medical advice (07) ==
LOC: HOBED 19:43
DX: O9A.212 Injury, poisoning and certain other consequences of external causes complicating pregnancy, second trimester (principal); S70.01XA Contusion of right hip, initial encounter; W01.0XXA Fall on same level from slipping, tripping and stumbling without subsequent striking against object, initial encounter; Z3A.17 17 weeks gestation of pregnancy
CPT/HCPCS: 73502; 99283

== ENCOUNTER 2017-04-01 14:13 | Emergency (ER) | payer OTHER ==
[~2017-04-01] VITALS: Ht 165.1 cm; Wt 56.4 kg
[2017-04-01 14:17] VITALS: BP 130/68; PULSE 119; RESP 20; TEMP 99.1; O2SAT 98
[2017-04-01] MEDS ORDERED: ACETAMINOPHEN 500 MG CPLT PO ONE (18:00)
--- NOTE | 2017-04-01 18:32 | PD ---
HPI Chief Complaint: Fall Time Seen by Provider: 17:39 Travel History International Travel<30 days: No Contact w/Intl Traveler<30days: No Traveled to known affect area: No History of Present Illness HPI 21yo F who is 17 weeks was sent here from her work for documentation after a slip and fall yesterday. Pt had slip and fell on her right hip at work yesterday and was seen by OB hospitalist Dr. Montano and had documented heart tone in the 150s. Pt was clear by Dr. Montano and sent to the ED for xray because of persistent pain. Pt had negative xray of right hip. However, she said that was not enough for workers compensation and her job needs an ultrasound and documentation today. Denies any head trauma, LOC, chest pain, sob, n/v, abdominal pain, vaginal bleeding. Pt said she had yeast and is already being treated for that. Said she has some bilateral lower back pain. PFSH Past Medical History Anxiety: Yes Heart Rhythm Problems: Yes (tachycardia) Cardiovascular Problems: Yes (SINUS TACHYCARDIA, CHEST PAIN) Diminished Hearing: No ?: : 2 Para: 2 Miscarriage: 1 Past Surgical History Section: Yes Genitourinary Surgery: Yes (c- section) Social History Alcohol Use: No Tobacco Use: No Substance Use: No Allergies-Medications (Allergen,Severity, Reaction): Coded Allergies: shellfish derived (Unverified Allergy, Severe, swelling of throat and mouth, 04/01/17) Reported Meds & Prescriptions Reported Meds & Active Scripts Active Phenergan (Promethazine HCl) 25 Mg Tablet 25 Mg PO Q6H PRN Vitafol Ultra 29-0.6-0.4-200 mg ( Vit W/ Fe Polysacch C) 29 Mg Iron-1 Mg -200 Mg Cap Review of Systems Except as stated in HPI: all other systems reviewed are Neg Physical Exam Narrative GENERAL: 21yo F in mild distress. SKIN: Focused skin assessment warm/dry. HEAD: Atraumatic. Normocephalic. EYES: Pupils equal and round. No scleral icterus. No injection or drainage. ENT: No nasal bleeding or discharge. Mucous membranes pink and moist. NECK: No midline cervical spine ttp. CARDIOVASCULAR: Regular rate and rhythm. No murmur appreciated. RESPIRATORY: No accessory muscle use. Clear to auscultation. Breath sounds equal bilaterally. GASTROINTESTINAL: Abdomen soft, non-tender, nondistended. No rebound tenderness or guarding. MUSCULOSKELETAL: Right hip: +TTP mid right femur with some edema. Sensation intact in bilateral lower extremities. Muscle strength normal. Distal pulses intact. BACK: No midline thoracic or lumbar ttp. Alcides lower paraspinal ttp L4-L5 bilateral. NEUROLOGICAL: Awake and alert. No obvious cranial nerve deficits. Motor grossly within normal limits. Normal speech. PSYCHIATRIC: Appropriate mood and affect; insight and judgment normal. Data Data Last Documented VS Vital Signs Date Time Temp Pulse Resp B/P (MAP) Pulse Ox O2 Delivery O2 Flow Rate FiO2 04/01/17 16:41 Room Air 04/01/17 14:17 99.1 119 20 130/68 (88) 98 Orders Orders Urinalysis - C+S If Indicated (04/01/17 14:46) Ed Urine Pregnancytest Poc (04/01/17 14:46) Beta Hcg (Quant/Titer) (04/01/17 14:46) Acetaminophen (Tylenol) (04/01/17 18:00) Ed Poc Ultrasound (04/01/17 ) Femur (Ap & Lat/2vws) (04/01/17 ) Labs Laboratory Tests Test 04/01/17 15:12 04/01/17 18:50 Human Chorionic Gonadotropin, Quant 23016 MIU/ML Urine Color YELLOW Urine Turbidity CLEAR Urine pH 7.5 Urine Specific [place] 1.016 Urine Protein TRACE mg/dL Urine Glucose (UA) 150 mg/dL Urine Ketones 10 mg/dL Urine Occult Blood NEG Urine Nitrite NEG Urine Bilirubin NEG Urine Urobilinogen 4.0 MG/DL Urine Leukocyte Esterase NEG Urine RBC 1 /hpf Urine WBC 1 /hpf Urine Squamous Epithelial Cells 1 /hpf Microscopic Urinalysis Comment CULT NOT INDICATED MDM Medical Decision Making Medical Screen Exam Complete: Yes Emergency Medical Condition: Yes Differential Diagnosis Contusion vs. hairline fracture Narrative Course 21yo F who was evaluated yesterday for a slip and fall is here requesting ultrasound and imaging today for workers compensation. No focal neurologic deficits on exam. I explain the risks and benefits of xray and pt wants xray of right femur today for documentation so it was ordered. Said she would lose her job if she did not get it. Xray right femur demonstrates no evidence of fracture or dislocation. Pt given acetaminophen. Will do bedside US for documentation. Pt has no abdominal tenderness on exam and no complaint of vaginal bleeding. UA showed negative leukocyte. WBC 1. Culture not indicated. Pt ambulating in the ED. Bedside US documented. Return precautions given. Procedures Procedure Narrative Emergency Department Pelvic ultrasound was performed with patient consent. The curvilinear probe was used in the transverse and sagittal views within the suprapubic region revealing single intrauterine . heart rate was 148bpm. Diagnosis Primary Impression: Contusion of right hip Qualified Codes: S70.01XA - Contusion of right hip, initial encounter Patient Instructions: General Instructions Departure Forms: Tests/Procedures Additional Instructions: Please follow up with your OBGYN in 2-3 days. Please follow up with your primary care physician in 2-3 days. Return to the ED if symptoms worsen. Bedside ultrasound was performed and showed intrauterine with heart rate of 148bpm. + movement. Xray right femur showed no acute fracture or joint dislocation. Med/Other Pt SpecificInfo: Prescription(s) given Scripts Acetaminophen (Tylenol) 325 Mg Tab 650 MG PO Q6H Y for PAIN SCALE 1 TO 4, #20 TAB 0 Refills Prov: Arelis Aleman DO 04/01/17 Disposition: 01 DISCHARGE HOME Condition: Stable Arelis Aleman DO Apr 01, 2017 18:32
[2017-04-01 19:51] LABS: BILIRUBIN, URINE NEG (NEG); BLOOD, URINE NEG (NEG); GLUCOSE,URINE 150 mg/dL (NEG); KETONE, URINE 10 mg/dL (NEG); NITRITE,URINE NEG (NEG); PH, URINE 7.5 (5.0-8.5); SQUAMOUS EPITHELIAL CELL URINE 1 /hpf (0-5); URINE COLOR YELLOW (YELLW/STRAW); URINE LEUKOCYTE ESTERASE NEG (NEG)
[2017-04-01] MEDS ORDERED: TYLE325T PO (20:08)
--- NOTE | 2017-04-02 08:43 | RADRPT ---
EXAM DATE/TIME: 04/01/2017 18:03 [facility] COMPARISON: No previous studies available for comparison. INDICATIONS : Right femur pain after fall at work. MEDICAL HISTORY : None. SURGICAL HISTORY : None. ENCOUNTER: Initial ACUITY: 2 days PAIN SCORE: 10/10 LOCATION: Right distal femur. FINDINGS: Two view examination of the right femur demonstrates no evidence of fracture or dislocation. Bony mi neralization is normal. The soft tissue structures are intact. CONCLUSION: No acute fracture or joint dislocation. Mane Glass MD on April 01, 2017 at 18:15 Board Certified Radiologist. This report was verified electronically.
== END 2017-04-01 21:17 | disposition home or self-care (01) ==
LOC: NEPD 14:13
DX: O9A.212 Injury, poisoning and certain other consequences of external causes complicating pregnancy, second trimester (principal); S70.01XA Contusion of right hip, initial encounter; M54.5 Low back pain; W01.0XXA Fall on same level from slipping, tripping and stumbling without subsequent striking against object, initial encounter; Z3A.17 17 weeks gestation of pregnancy
CPT/HCPCS: 73552; 81001; 84702; 84703; 99283

== ENCOUNTER → 2017-05-06 | Outpatient (CLI) | payer OTHER ==
[~2017-05-06] MED LIST changes: +TYLE325T PO
== END ==
LOC: HPND 09:39
PROVIDERS: ATTEND Obstetrics & Gynecology
DX: O34.02 Maternal care for unspecified congenital malformation of uterus, second trimester (principal); O09.32 Supervision of pregnancy with insufficient antenatal care, second trimester; O34.211 Maternal care for low transverse scar from previous cesarean delivery; Q51.3 Bicornate uterus
CPT/HCPCS: 76805; 76817

== ENCOUNTER 2017-05-15 15:04 | Emergency (ER) | payer OTHER ==
[~2017-05-15] VITALS: Ht 165.1 cm; Wt 56.0 kg
[2017-05-15 15:06] VITALS: BP 101/72; PULSE 88; RESP 15; TEMP 98.8; O2SAT 100
[2017-05-15] MEDS ORDERED: SODIUM CHLORIDE 0.9% FLUSH 10 ML FLUSH IV FLUSH PRN (15:30)
[2017-05-15 15:42] VITALS: O2SAT 100
[2017-05-15] MEDS ORDERED: ACETAMINOPHEN 325 MG TAB PO ONE (16:00)
[2017-05-15] MEDS ORDERED: SODIUM CHLOR 0.9% 1000 ML INJ 1,000 ML IV ONE (16:00)
--- NOTE | 2017-05-15 16:01 | PD ---
HPI Chief Complaint: Dizziness Time Seen by Provider: 15:28 Travel History International Travel<30 days: No Contact w/Intl Traveler<30days: No Traveled to known affect area: No History of Present Illness HPI Patient is a 21-year-old female early presents emergency department for several vague complaints. Patient states she has had a mild headache, some dizziness and fatigue. She states she just feels weak all over and she has had some nausea as well. Mild nausea without vomiting. He states his symptoms have been going on for some time, she has not followed up with her CENTER LEAD CONSULTANT yet. Has been taking her vitamins, no smoking or drinking. States the symptoms are moderate, constant, associated signs and symptoms in context as above. Patient is 22 weeks , she is already had an ultrasound showing IUP. She has no complaints of abdominal pain nausea vomiting vaginal bleeding or vaginal discharge PFSH Past Medical History Anxiety: Yes Heart Rhythm Problems: Yes (tachycardia) Cardiovascular Problems: Yes (SINUS TACHYCARDIA, CHEST PAIN) Chest Pain: Yes Diminished Hearing: No Tetanus Vaccination: < 5 Years Influenza Vaccination: No ?: LMP: 12/04/16 : 2 Para: 2 Miscarriage: 1 Past Surgical History Section: Yes Genitourinary Surgery: Yes (c- section) Social History Alcohol Use: No Tobacco Use: No Substance Use: No Allergies-Medications (Allergen,Severity, Reaction): Coded Allergies: shellfish derived (Unverified Allergy, Severe, swelling of throat and mouth, 04/01/17) Reported Meds & Prescriptions Reported Meds & Active Scripts Active Tylenol (Acetaminophen) 325 Mg Tab 650 Mg PO Q6H PRN Phenergan (Promethazine HCl) 25 Mg Tablet 25 Mg PO Q6H PRN Vitafol Ultra 29-0.6-0.4-200 mg ( Vit W/ Fe Polysacch C) 29 Mg Iron-1 Mg -200 Mg Cap Review of Systems Except as stated in HPI: all other systems reviewed are Neg Physical Exam Narrative GENERAL: Well-developed well-nourished no obvious distress. Thin. SKIN: Focused skin assessment warm/dry. HEAD: Atraumatic. Normocephalic. EYES: Pupils equal and round. No scleral icterus. No injection or drainage. ENT: No nasal bleeding or discharge. Mucous membranes pink and moist. NECK: Trachea midline. No JVD. CARDIOVASCULAR: Regular rate and rhythm. No murmur appreciated. RESPIRATORY: No accessory muscle use. Clear to auscultation. Breath sounds equal bilaterally. GASTROINTESTINAL: Abdomen soft, non-tender, nondistended. Hepatic and splenic margins not palpable. MUSCULOSKELETAL: No obvious deformities. No clubbing. No cyanosis. No edema. NEUROLOGICAL: Awake and alert. No obvious cranial nerve deficits. Motor grossly within normal limits. Normal speech. PSYCHIATRIC: Appropriate mood and affect; insight and judgment normal. Data Data Last Documented VS Vital Signs Date Time Temp Pulse Resp B/P (MAP) Pulse Ox O2 Delivery O2 Flow Rate FiO2 05/15/17 15:42 100 Room Air 05/15/17 15:06 98.8 88 15 101/72 (82) Orders Orders Complete Blood Count With Diff (05/15/17 15:28) Comprehensive Metabolic Panel (05/15/17 15:28) Urinalysis - C+S If Indicated (05/15/17 15:28) Iv Access Insert/Monitor (05/15/17 15:28) Ecg Monitoring (05/15/17 15:28) Oximetry (05/15/17 15:28) Sodium Chloride 0.9% Flush (Ns Flush) (05/15/17 15:30) Electrocardiogram (05/15/17 15:28) Sodium Chlor 0.9% 1000 Ml Inj (Ns 1000 M (05/15/17 16:00) Acetaminophen (Tylenol) (05/15/17 16:00) Ed Discharge Order (05/15/17 16:59) Labs Laboratory Tests Test 05/15/17 15:35 White Blood Count 10.7 TH/MM3 Red Blood Count 4.12 MIL/MM3 Hemoglobin 11.6 GM/DL Hematocrit 34.2 % Mean Corpuscular Volume 82.9 FL Mean Corpuscular Hemoglobin 28.2 PG Mean Corpuscular Hemoglobin Concent 34.0 % Red Cell Distribution Width 13.3 % Platelet Count 253 TH/MM3 Mean Platelet Volume 9.8 FL Neutrophils (%) (Auto) 73.0 % Lymphocytes (%) (Auto) 19.8 % Monocytes (%) (Auto) 5.1 % Eosinophils (%) (Auto) 1.5 % Basophils (%) (Auto) 0.6 % Neutrophils # (Auto) 7.8 TH/MM3 Lymphocytes # (Auto) 2.1 TH/MM3 Monocytes # (Auto) 0.6 TH/MM3 Eosinophils # (Auto) 0.2 TH/MM3 Basophils # (Auto) 0.1 TH/MM3 CBC Comment DIFF FINAL Differential Comment Urine Color YELLOW Urine Turbidity CLEAR Urine pH 7.0 Urine Specific [place] 1.016 Urine Protein NEG mg/dL Urine Glucose (UA) NEG mg/dL Urine Ketones NEG mg/dL Urine Occult Blood NEG Urine Nitrite NEG Urine Bilirubin NEG Urine Urobilinogen LESS THAN 2.0 MG/DL Urine Leukocyte Esterase NEG Urine WBC 1 /hpf Urine Squamous Epithelial Cells 1 /hpf Urine Mucus FEW /lpf Microscopic Urinalysis Comment CULT NOT INDICATED Blood Urea Nitrogen 8 MG/DL Creatinine 0.50 MG/DL Random Glucose 63 MG/DL Total Protein 7.4 GM/DL Albumin 3.4 GM/DL Calcium Level 8.5 MG/DL Alkaline Phosphatase 72 U/L Aspartate Amino Transf (AST/SGOT) 15 U/L Alanine Aminotransferase (ALT/SGPT) 13 U/L Total Bilirubin 0.7 MG/DL Sodium Level 137 MEQ/L Potassium Level 3.3 MEQ/L Chloride Level 101 MEQ/L Carbon Dioxide Level 25.5 MEQ/L Anion Gap 11 MEQ/L Estimat Glomerular Filtration Rate 188 ML/MIN [facility] Medical Decision Making Medical Screen Exam Complete: Yes Emergency Medical Condition: Yes Differential Diagnosis Fatigue, electrolyte abnormality, dehydration, preeclampsia is considered but seems unlikely. Narrative Course Patient room to the emergency department, her initial workup here in the emergency department is reassuring. No proteinuria, blood pressure within normal limits. At this time she is a reassuring physical exam, Tylenol given for mild headache, normal saline bolus. She is feeling better. Discussed need follow-up with an [facility] CONSULTANT and symptomatic management, discussed care. She is stable for discharge. Discussed return to ED criteria Diagnosis Primary Impression: Fatigue Disposition: 01 DISCHARGE HOME Condition: Stable Adriano Stevenson MD May 15, 2017 16:01
[2017-05-15 16:08] LABS: AUTOMATED NEUTROPHIL # 7.8 TH/MM3 (1.8-7.7); BASOPHIL # 0.1 TH/MM3 (0-0.2); BASOPHIL % 0.6 % (0.0-2.0); EOSINOPHIL # 0.2 TH/MM3 (0-0.4); EOSINOPHIL % 1.5 % (0.0-4.0); HEMATOCRIT 34.2 % (35.0-46.0); HEMOGLOBIN 11.6 GM/DL (11.6-15.3); LYMPH % 19.8 % (9.0-44.0); LYMPHOCYTE # 2.1 TH/MM3 (1.0-4.8); MEAN CELL VOLUME 82.9 FL (80.0-100.0); MEAN CORPUSCULAR HEMOGLOBIN 28.2 PG (27.0-34.0); MEAN PLATELET VOLUME 9.8 FL (7.0-11.0); MONO % 5.1 % (0.0-8.0); MONOCYTE # 0.6 TH/MM3 (0-0.9); PLATELET COUNT 253 TH/MM3 (150-450); RED BLOOD COUNT 4.12 MIL/MM3 (4.00-5.30); RED CELL DISTRIBUTION WIDTH 13.3 % (11.6-17.2); WHITE BLOOD COUNT 10.7 TH/MM3 (4.0-11.0)
[2017-05-15 16:12] LABS: BILIRUBIN, URINE NEG (NEG); BLOOD, URINE NEG (NEG); GLUCOSE,URINE NEG (NEG); KETONE, URINE NEG (NEG); MUCUS URINE FEW /lpf (OCC); NITRITE,URINE NEG (NEG); SQUAMOUS EPITHELIAL CELL URINE 1 /hpf (0-5); URINE COLOR YELLOW (YELLW/STRAW); URINE LEUKOCYTE ESTERASE NEG (NEG)
[2017-05-15 16:25] LABS: ALBUMIN 3.4 GM/DL (3.4-5.0); AST (GOT) 15 U/L (15-37); BICARBONATE 25.5 MEQ/L (21.0-32.0); BLOOD UREA NITROGEN 8 MG/DL (7-18); CALCIUM 8.5 MG/DL (8.5-10.1); CHLORIDE 101 MEQ/L (98-107); GLOMERULAR FILTRATION RATE 188 ML/MIN (>89); GLUCOSE,RANDOM 63 MG/DL (74-106); SODIUM (NA) 137 MEQ/L (136-145)
[2017-05-15 16:28] LABS: ALKALINE PHOSPHATASE 72 U/L (45-117); ALT (GPT) 13 U/L (10-53); TOTAL BILIRUBIN ADULT 0.7 MG/DL (0.2-1.0); TOTAL PROTEIN 7.4 GM/DL (6.4-8.2)
--- NOTE | 2017-05-16 19:19 | EKG ---
Date Performed: 05/15/2017 Time Performed: 15:44:47 PTAGE: 21 years EKG: Sinus rhythm WITH SINUS ARRHYTHMIA POSSIBLE RIGHT VENTRICULAR CONDUCTION DELAY BORDERLINE ECG NO PREVIOUS TRACING DOCTOR: Timmy Pizano Interpretating Date/Time 05/16/2017 19:15:46
== END 2017-05-15 17:01 | disposition home or self-care (01) ==
LOC: NEPD 15:04
DX: O26.812 Pregnancy related exhaustion and fatigue, second trimester (principal); O26.892 Other specified pregnancy related conditions, second trimester; R42 Dizziness and giddiness; Z3A.22 22 weeks gestation of pregnancy
CPT/HCPCS: 80053; 81001; 85025; 93005; 96360; 99284; J7030

== ENCOUNTER 2017-05-18 11:42 | Emergency (ER) | payer OTHER ==
[~2017-05-18] VITALS: Ht 165.1 cm; Wt 58.0 kg
[2017-05-18 11:57] VITALS: BP 105/62; PULSE 94; RESP 18; TEMP 98.1; O2SAT 100
[2017-05-18 12:01] VITALS: BP 104/60; PULSE 97; RESP 18; TEMP 98.1; O2SAT 100
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
[2017-05-18] MEDS ORDERED: ACETAMINOPHEN 500 MG CPLT PO ONE (12:15)
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
== END 2017-05-18 18:05 | disposition home or self-care (01) ==
LOC: NEPE 11:42
DX: O9A.212 Injury, poisoning and certain other consequences of external causes complicating pregnancy, second trimester (principal); S00.83XA Contusion of other part of head, initial encounter; V89.2XXA Person injured in unspecified motor-vehicle accident, traffic, initial encounter; O99.342 Other mental disorders complicating pregnancy, second trimester; F41.9 Anxiety disorder, unspecified; Z3A.23 23 weeks gestation of pregnancy
CPT/HCPCS: 70450; 99283

== ENCOUNTER → 2017-06-17 | Outpatient (CLI) | payer OTHER | LOC: HPND 08:51 | PROVIDERS: ATTEND Obstetrics & Gynecology | DX: O34.02 Maternal care for unspecified congenital malformation of uterus, second trimester (principal); O34.212 Maternal care for vertical scar from previous cesarean delivery; Q51.3 Bicornate uterus | CPT/HCPCS: 76816; 76818; 76820; 76821 ==

== ENCOUNTER 2017-06-26 09:50 | Emergency (ER) | payer OTHER ==
--- NOTE | 2017-06-26 10:54 | PD ---
HPI Travel History International Travel<30 Days: No Contact w/Intl Traveler<30Days: No Known Affected Area: No History of Present Illness HPI 22-year-old female 002 with history of bicornuate uterus, IUGR, and 2 previous C-sections at 29 weeks of gestation presents to the OB ED via [facility] for abdominal pain. She reports that she has been having dizziness, lightheadedness , pelvic pain since last night. She also endorses 3 episodes of vomiting. She does not know if the vomit is nonbloody due to drinking red Gatorade. She also endorses occasional nosebleeds. Endorses good movement she denies diarrhea, chest pain, shortness of breath, vaginal bleeding, leakage of fluid, dysuria. She has seen MFM every 2 weeks for IUGR. Her next appointment is this Friday. History Past Medical History Narrative Medical Anxiety Obstetric History Obstetric History 002 Full-term 2 previous C-sections due to bicornate uterus and breech presentation Past Surgical History Narrative Surgical 2 previous C-sections Family History Family History: Negative Social History Alcohol Use: No Tobacco Use: No Substance Abuse: No (One-time use of marijuana for appetite stimulation per patient) Allergies-Medications (Allergen,Severity, Reaction): Coded Allergies: shellfish derived (Unverified Allergy, Severe, swelling of throat and mouth, 06/26/17) Home Meds Active Scripts Acetaminophen (Tylenol) 325 Mg Tab, 650 MG PO Q6H Y for PAIN SCALE 1 TO 4, #20 TAB 0 Refills Prov:Arelis Aleman DO 04/01/17 Promethazine (Phenergan) 25 Mg Tablet, 25 MG PO Q6H Y for NAUSEA OR VOMITING, # 20 TAB 0 Refills Prov:Miguel Velazquez MD 03/05/17 Vit W/ Fe Polysacch C (Vitafol Ultra 29-0.6-0.4-200 mg) 29 Mg Iron-1 Mg -200 Mg Cap Prov:Miguel Velazquez MD 03/05/17 Review of Systems Except as stated in HPI: all other systems reviewed are Neg Physical Exam Narrative GENERAL: Well-nourished, well-developed patient. SKIN: Warm and dry. HEAD: Normocephalic and atraumatic. EYES: No scleral icterus. No injection or drainage. ENT: No nasal drainage noted. Mucous membranes pink. Airway patent. NECK: Supple, trachea midline. No JVD. CARDIOVASCULAR: Regular rate and rhythm without murmurs, gallops, or rubs. RESPIRATORY: Breath sounds equal bilaterally. No accessory muscle use. ABDOMEN/GI: Abdomen soft, non-tender, bowel sounds present, no rebound, no guarding ] FHT's: Category: 1 Baseline: 130s Reactive: yes Variability: moderate Decels: none EXTREMITIES: No cyanosis or edema. BACK: Nontender without obvious deformity. NEUROLOGICAL: Awake and alert. Motor and sensory grossly within normal limits. Five out of 5 muscle strength in all muscle groups. Normal speech. Data Data Vital Signs Reviewed: Yes MDM Plan 22-year-old female 002 with history of bicornuate uterus, IUGR, and 2 previous C-sections at 29 weeks of gestation presents to the OB ED via [facility] for abdominal pain. -Intrauterine , category 1, reassuring -No contractions on tocometer -Urine dipstick negative -3 of 2 previous C-sections, abdominal pain most likely due to adhesions -Advised patient to take Tylenol and use heating pad for pain -Hydrate frequently -Follow up with OB provider and MFM for routine OB care sdw Dr. Villagran Diagnosis Diagnosis: Primary Impression: Adhesion of abdominal wall Additional Impressions: Abdominal pain Disposition: 01 DISCHARGE HOME Condition: Stable Bushra Flynn MD R1 June 26, 2017 10:54
== END 2017-06-26 11:23 | disposition home or self-care (01) ==
LOC: HOBED 09:50
DX: O99.613 Diseases of the digestive system complicating pregnancy, third trimester (principal); K66.0 Peritoneal adhesions (postprocedural) (postinfection); O26.893 Other specified pregnancy related conditions, third trimester; R10.2 Pelvic and perineal pain; Z3A.29 29 weeks gestation of pregnancy
CPT/HCPCS: 99283

== ENCOUNTER 2017-07-01 08:49 | Emergency (ER) | payer OTHER ==
--- NOTE | 2017-07-01 09:51 | PD ---
HPI Chief Complaint Leakage of fluid Date Seen: July 01, 2017 Travel History International Travel<30 Days: No Contact w/Intl Traveler<30Days: No Known Affected Area: No History of Present Illness HPI The patient is a 22 year old at 30/3 weeks gestation being evaluated in OB triage due to leakage of fluid occurring for about the past two days. She reports clear leakage of fluid two nights ago. Endorses trickling of fluid down her legs. She denies contractions. Reports +FM. She denies dysuria or pyuria, fevers, chest pain, dyspnea, lower extremity swelling. History Past Medical History Narrative Medical Anxiety Obstetric History Obstetric History Full-term 2 previous C-sections due to bicornate uterus and breech presentation Past Surgical History Narrative Surgical 2 previous C-sections Family History Family History: Negative Social History Alcohol Use: No Tobacco Use: No Substance Abuse: No (One-time use of marijuana for appetite stimulation per patient) Allergies-Medications (Allergen,Severity, Reaction): Coded Allergies: shellfish derived (Unverified Allergy, Severe, swelling of throat and mouth, 06/26/17) Home Meds Active Scripts Acetaminophen (Tylenol) 325 Mg Tab, 650 MG PO Q6H Y for PAIN SCALE 1 TO 4, #20 TAB 0 Refills Prov:Arelis Aleman DO 04/01/17 Promethazine (Phenergan) 25 Mg Tablet, 25 MG PO Q6H Y for NAUSEA OR VOMITING, # 20 TAB 0 Refills Prov:Miguel Velazquez MD 03/05/17 Vit W/ Fe Polysacch C (Vitafol Ultra 29-0.6-0.4-200 mg) 29 Mg Iron-1 Mg -200 Mg Cap Prov:Miguel eVlazquez MD 03/05/17 Review of Systems Except as stated in HPI: all other systems reviewed are Neg Physical Exam Narrative GENERAL: Well-nourished, well-developed patient. SKIN: Warm and dry. HEAD: Normocephalic and atraumatic. EYES: No scleral icterus. No injection or drainage. ENT: No nasal drainage noted. Mucous membranes pink. Airway patent. NECK: Supple, trachea midline. No JVD. CARDIOVASCULAR: Regular rate and rhythm without murmurs, gallops, or rubs. RESPIRATORY: Breath sounds equal bilaterally. No accessory muscle use. ABDOMEN/GI: Abdomen soft, non-tender, bowel sounds present, no rebound, no guarding Gravid to 30 weeks size GENITOURINARY: External Genitalia: intact and normal in appearance Cervix: [-] Dilatation: closed Effacement: thick Station: [-] Presentation: [-] Membranes: intact Uterine Contractions: none on tocometer FHT's: Category: I Baseline: 140s Reactive: +accels Variability: moderate Decels: none noted EXTREMITIES: No cyanosis or edema. BACK: Nontender without obvious deformity. No CVA tenderness. NEUROLOGICAL: Awake and alert. Motor and sensory grossly within normal limits. Normal speech. Data Data Vital Signs Reviewed: Yes MDM Medical Record Reviewed: Yes Plan 22 year old at 30/3 weeks gestation evaluated due to reports of leakage of fluid. - Amnisure negative - Category I tracing - No contractions on tocometer - Cervix long, thick, closed - Labor precautions reviewed with the patient, instructed on si/sxs on when to return to OB triage for reevaluation - Patient will continue close follow up with her primary OB provider sona Justin Diagnosis Diagnosis: Primary Impression: 30 weeks gestation of Disposition: DISCHARGE HOME Condition: Stable Patient Instructions: General Instructions, Early Labor Signs (ED), Abdominal Pain in (ED) Dov Mcconnell MD R2 July 01, 2017 09:51
== END 2017-07-01 10:11 | disposition home or self-care (01) ==
LOC: HOBED 08:49
DX: Z03.79 Encounter for other suspected maternal and fetal conditions ruled out (principal); Z3A.30 30 weeks gestation of pregnancy
CPT/HCPCS: 84112; 99283

== ENCOUNTER → 2017-08-18 | Outpatient (CLI) | payer OTHER | LOC: HPND 13:26 | PROVIDERS: ATTEND Obstetrics & Gynecology | DX: O36.5930 Maternal care for other known or suspected poor fetal growth, third trimester, not applicable or unspecified (principal) | CPT/HCPCS: 76816 ==

== ENCOUNTER 2017-08-24 13:59 | Inpatient (IN) ==
[2017-08-29 11:15] LABS: Baso % (Auto) 0.5 % (0.0-2.0); Eos # (Auto) 0.2 th/mm3 (0.0-0.4); Eos % (Auto) 1.9 % (0.0-4.0); Hemoglobin 11.1 gm/dL (11.6-15.3); Lymph % (Auto) 25.2 % (9.0-44.0); Mean Corpuscular HGB Conc 33.5 % (32.0-36.0); Mean Corpuscular Hemoglobin 28.3 pg (27.0-34.0); Mean Corpuscular Volume 84.6 fL (80.0-100.0); Mean Platelet Volume 11.2 fL (7.0-11.0); Mono # (Auto) 0.6 th/mm3 (0.0-0.9); Mono % (Auto) 7.7 % (0.0-8.0); Neut # (Auto) 5.1 th/mm3 (1.8-7.7); Neut % (Auto) 64.7 % (16.0-70.0); Platelet Count 174 th/mm3 (150-450); Red Blood Count 3.91 mil/mm3 (4.00-5.30); Red Cell Distribution Width 13.2 % (11.6-17.2)
[2017-08-29] MEDS ORDERED: Citric Acid/Sodium Citrate Liq 30 ML UDC PO SCH (11:15)
[2017-08-29] MEDS ORDERED: Phenylephrine/NS 1000 MCG/10ML Syringe IV.PUSH ONE (12:00)
[2017-08-29] MEDS ORDERED: ceFAZolin 2 GM Premix Inj 2 GM/50 ML PIGGYBACK IV.SIG SCH (12:00)
[2017-08-29] MEDS ORDERED: ceFAZolin Inj 2,000 MG in Sodium Chlor 0.9% Inj 80 ML IV.SIG SCH (12:00)
[2017-08-29] MEDS ORDERED: Morphine Sulfate PF Inj 5 MG/10 ML Ampul ONE (12:10)
[2017-08-29 13:49] LABS: Bacteria,Urine Rare /hpf; Bilirubin,Urine Negative (Negative); Clarity,Urine Clear (Clear); Color,Urine Straw (Yellw/Straw); Glucose,Urine (UA) Negative (Negative); Leukocyte Esterase,Urine Negative (Negative); Nitrite,Urine Negative (Negative); Specific Gravity,Urine 1.008 (1.002-1.035); Squamous Epithelial Cell,Urine 1 /hpf (0-5)
[2017-08-29 13:52] LABS: Amphetamine Screen,Urine Neg (Neg); Barbiturate Screen,Urine Neg (Neg); Cannabinoid Screen,Urine Neg (Neg); Cocaine Screen,Urine Neg (Neg); Opiate Screen,Urine Neg (Neg)
--- NOTE | 2017-08-29 14:03 | P.OP ---
- Preoperative Diagnosis (1) IUGR (intrauterine growth restriction) affecting care of mother (2) History of delivery - Postoperative Diagnosis (1) IUGR (intrauterine growth restriction) Date of procedure: 08/29/17 Procedure: Repeat lower uterine segment transverse section Anesthesia: spinal Surgeon: Balwinder Hamlin MD Estimated blood loss (mL): 350 Pathology: none sent (Cord blood sample) Operation and Findings: The patient was taken to the operating room and after administration of a spinal anesthetic was prepped and draped in the dorsal supine position. The skin was incised transversely along the previous scar and the subcutaneous tissue was sharply dissected away down to the level of the fascia which was nicked in the midline extended bilaterally with the scissors. The fascia was from the underlying muscle with sharp and blunt dissection. The muscle was bluntly divided in the midline. The peritoneum was bluntly entered. A bladder flap was created due to a high bladder adherence. Transverse lower uterine segment incision was made with the scalpel. membranes were encountered with clear fluid noted. The vertex was elevated out of the pelvic inlet and delivered easily through the hysterotomy. The remainder the followed easily. Delayed cord clamping was accomplished. Cord blood sample was obtained. The placenta was delivered by fundal massage and gentle traction. Uterine cavity was wiped with a moistened lap sponge. The uterus was exteriorized and the hysterotomy was closed with a running suture of 0 Monocryl. The paracolic gutters and posterior cul-de-sac were evacuated of excess amniotic fluid and blood. The fascia was then closed anteriorly with #1 PDS. The subcutaneous tissue was closed with 3-0 Vicryl and the skin with subcuticular 4-0 Vicryl and tissue glue.
--- NOTE | 2017-08-29 14:11 | P.HP ---
<Greg Macias III - Last Filed: 08/29/17 14:27> History of Present Illness Primary Care Physician: Soco Deshpande Chief Complaint: Scheduled History of Present Illness: Ms Mina is a 22 YO at 38/6 weeks who presents for scheduled repeat C- section complicated by IUGR. labs are negative including GBS negative. Pt has only a shellfish allergy. Inpatient Certification: I certify that the inpatient services were ordered in accordance with Medicare regulations governing the order. This includes certification that hospital inpatient services are reasonable and necessary and in the case of services not specified as inpatient-only under 42 CFR 419.22(n), that they are appropriately provided as inpatient services in accordance to with the 2-midnight benchmark under 43 CFR 412.3(e) Estimated Total Length of Stay (Days): 3 Plans for Post Hospital Care: Home [facility] - Medical History Medical History: Medical History (Last Updated 08/29/17 @ 14:07 by Greg Macias III, MD, R1) delivery delivered - Surgical History Surgical History: Surgical History (Last Updated 08/29/17 @ 14:07 by Greg Macias III, MD, R1) Previous section Medications and Allergies Allergies Allergy/AdvReac Type Severity Reaction Status Date / Time shellfish derived Allergy Severe swelling Verified 08/29/17 10:49 of throat and mouth Home Medications Medication Instructions Recorded Confirmed Type PNV #[id number] 1 tab PO DAILY 08/29/17 08/29/17 History Active Medications: Active Medications Citric Acid/Sodium Citrate (Sodium Citrate/Citric Acid Liq) 30 ml PO BISCUIT MACHINE OPERATOR [facility] Stop: 09/02/17 11:14 Last Admin: 08/29/17 12:22 Dose: 30 ml Lactated Ringer's (Lr 1000 Ml Inj) 1,000 mls @ 150 mls/hr IV.CONT .Q6H40M [facility] Last Admin: 08/29/17 12:23 Dose: 150 mls/hr Cefazolin Sodium/Dextrose (Ancef 2 Gm Premix Inj) 2 gm in 50 mls @ 100 mls/hr IV.SIG BISCUIT MACHINE OPERATOR [facility] Stop: 09/02/17 11:59 Last Admin: 08/29/17 12:22 Dose: 100 mls/hr Exam Vital signs: Vital Signs 08/29/17 10:33 08/29/17 10:45 Temperature 98.0 F Pulse Rate 92 H Respiratory Rate 18 Blood Pressure 134/82 Intake & Output 08/28/17 08/29/17 08/29/17 18:59 06:59 18:59 Weight 89 kg Other: Weight On Admission 89 kg Narrative: GENERAL: Well-nourished, well-developed patient. SKIN: Warm and dry. HEAD: Normocephalic and atraumatic. EYES: No scleral icterus. No injection or drainage. ENT: No nasal drainage noted. Mucous membranes pink. Airway patent. NECK: Supple, trachea midline. No JVD. CARDIOVASCULAR: Regular rate and rhythm without murmurs, gallops, or rubs. RESPIRATORY: Breath sounds equal bilaterally. No accessory muscle use. BREASTS: Bilateral exam showed no masses , no retractions, no nipple discharge. ABDOMEN/GI: Abdomen soft, non-tender, bowel sounds present, no rebound, no guarding Gravid to 39 weeks size GENITOURINARY: External Genitalia: intact and normal in appearance FHT's: Category: [-] Baseline: [-] Reactive: [-] Variability: [-] Decels: [-] EXTREMITIES: No cyanosis or edema. BACK: Nontender without obvious deformity. No CVA tenderness. NEUROLOGICAL: Awake and alert. Motor and sensory grossly within normal limits. Five out of 5 muscle strength in all muscle groups. Normal speech. Results - Labs CBC & Chem 7: 08/29/17 10:45 Labs: Laboratory Results - last 24 hr 08/29/17 08/29/17 08/29/17 10:45 10:45 10:45 WBC 8.0 RBC 3.91 L Hgb 11.1 L Hct 33.0 L MCV 84.6 MCH 28.3 MCHC 33.5 RDW 13.2 Plt Count 174 MPV 11.2 H Neut % (Auto) 64.7 Lymph % (Auto) 25.2 Millard % (Auto) 7.7 Eos % (Auto) 1.9 Baso % (Auto) 0.5 Neut # (Auto) 5.1 Lymph # (Auto) 2.0 Millard # (Auto) 0.6 Eos # (Auto) 0.2 Baso # (Auto) 0.0 WBC Differential . Differential Comment Auto diff final Urine Color Urine Clarity Urine pH Ur Specific Watkins Urine Protein Urine Glucose (UA) Urine Ketones Urine Occult Blood Urine Nitrate Urine Bilirubin Urine Urobilinogen Ur Leukocyte Esterase Urine RBC Urine WBC Ur Squamous Epith Cells Urine Bacteria Micro UA Comment Urine Culture Comments Urine Opiates Screen Neg Ur Barbiturates Screen Neg Ur Amphetamines Screen Neg U Benzodiazepines Scrn Neg Urine Cocaine Screen Neg U Cannabinoids Screen Neg Blood Type O Positive Antibody Screen Negative 08/29/17 10:45 WBC RBC Hgb Hct MCV MCH MCHC RDW Plt Count MPV Neut % (Auto) Lymph % (Auto) Millard % (Auto) Eos % (Auto) Baso % (Auto) Neut # (Auto) Lymph # (Auto) Millard # (Auto) Eos # (Auto) Baso # (Auto) WBC Differential Differential Comment Urine Color Straw Urine Clarity Clear Urine pH 6.0 Ur Specific Watkins 1.008 Urine Protein Negative Urine Glucose (UA) Negative Urine Ketones Negative Urine Occult Blood Negative Urine Nitrate Negative Urine Bilirubin Negative Urine Urobilinogen Less than 2 Ur Leukocyte Esterase Negative Urine RBC Less than 1 Urine WBC 1 Ur Squamous Epith Cells 1 Urine Bacteria Rare H Micro UA Comment Culture not ind Urine Culture Comments Culture not ind Urine Opiates Screen Ur Barbiturates Screen Ur Amphetamines Screen U Benzodiazepines Scrn Urine Cocaine Screen U Cannabinoids Screen Blood Type Antibody Screen Caprini VTE Risk Assessment Caprini VTE Risk Assessment: No/Low Risk (score <= 1) Caprini Risk Assessment Model: Point Value = 1 Point Value = 2 Point Value = 3 Point Value = 5 Age 41-60 Minor surgery BMI > 25 kg/m2 Swollen legs Varicose veins or History of unexplained or recurrent spontaneous Oral contraceptives or hormone replacement Sepsis (< 1 month) Serious lung disease, including pneumonia (< 1 month) Abnormal pulmonary function Acute myocardial infarction Congestive heart failure (< 1 month) History of inflammatory bowel disease Medical patient at bed rest Age 61-74 Arthroscopic surgery Major open surgery (> 45 min) Laparoscopic surgery (> 45 min) Malignancy Confined to bed (> 72 hours) Immobilizing plaster cast Central venous access Age >= 75 History of VTE Family history of VTE Factor V Leiden Prothrombin [id number] Lupus anticoagulant Anticardiolipin antibodies Elevated serum homocysteine Heparin-induced thrombocytopenia Other congenital or acquired thrombophilia Stroke (< 1 month) Elective arthroplasty Hip, pelvis, or leg fracture Acute spinal cord injury (< 1 month) Prophylaxis Regimen: Total Risk Factor Score Risk Level Prophylaxis Regimen 0-1 Low Early ambulation 2 Moderate Order ONE of the following: *Sequential Compression Device (SCD) *Heparin 5000 units SQ BID 3-4 Higher Order ONE of the following medications: *Heparin 5000 units SQ TID *Enoxaparin/Lovenox 40 mg SQ daily (WT < 150 kg, CrCl > 30 mL/min) *Enoxaparin/Lovenox 30 mg SQ daily (WT < 150 kg, CrCl > 10-29 mL/min) *Enoxaparin/Lovenox 30 mg SQ BID (WT < 150 kg, CrCl > 30 mL/min) AND/OR *Sequential Compression Device (SCD) 5 or more Highest Order ONE of the following medications: *Heparin 5000 units SQ TID (Preferred with Epidurals) *Enoxaparin/Lovenox 40 mg SQ daily (WT < 150 kg, CrCl > 30 mL/min) *Enoxaparin/Lovenox 30 mg SQ daily (WT < 150 kg, CrCl > 10-29 mL/min) *Enoxaparin/Lovenox 30 mg SQ BID (WT < 150 kg, CrCl > 30 mL/min) AND *Sequential Compression Device (SCD) Assessment and Plan - Plan 22YO at 38/6 weeks presents for scheduled repeat C/S complicated by IUGR. 1. 38/6 weeks with IUGR -Admit for repeat C/S - labs negative -Pre-op C/S orders Pt DW Dr Hamlin <Balwinder Hamlin - Last Filed: 08/29/17 16:24> History of Present Illness Primary Care Physician: Soco Deshpande Inpatient Certification: I certify that the inpatient services were ordered in accordance with Medicare regulations governing the order. This includes certification that hospital inpatient services are reasonable and necessary and in the case of services not specified as inpatient-only under 42 CFR 419.22(n), that they are appropriately provided as inpatient services in accordance to with the 2-midnight benchmark under 43 CFR 412.3(e) PMF[facility] - Medical History Medical History: Medical History (Last Updated 08/29/17 @ 14:07 by Greg Macias III, MD, R1) delivery delivered - Surgical History Surgical History: Surgical History (Last Updated 08/29/17 @ 14:07 by Greg Macias III, MD, R1) Previous section Medications and Allergies Active Medications: Active Medications Citric Acid/Sodium Citrate (Sodium Citrate/Citric Acid Liq) 30 ml PO BISCUIT MACHINE OPERATOR [facility] Stop: 09/02/17 11:14 Last Admin: 08/29/17 12:22 Dose: 30 ml Diphtheria/Pertussis/Tetanus Vacc (Boostrix Vaccine Inj) 0.5 ml IM .ONCE ONE Stop: 08/30/17 16:01 Cefazolin Sodium/Dextrose (Ancef 2 Gm Premix Inj) 2 gm in 50 mls @ 100 mls/hr IV.SIG BISCUIT MACHINE OPERATOR [facility] Stop: 09/02/17 11:59 Last Admin: 08/29/17 12:22 Dose: 100 mls/hr Lactated Ringer's (Lr 1000 Ml Inj) 1,000 mls @ 100 mls/hr IV.CONT .Q10H [facility] Stop: 08/30/17 15:05 Oxytocin (Pitocin 30 Units/Ns 500 Ml Premix) 30 units in 500 mls @ 100 mls/hr IV.SIG ONCE ONE Stop: 08/29/17 19:59 Last Admin: 08/29/17 16:16 Dose: 100 mls/hr Oxytocin (Pitocin 30 Units/Ns 500 Ml Premix) 30 units in 500 mls @ 100 mls/hr IV.SIG UNSCH X1 PRN PRN Reason: Heavy bleeding Stop: 08/30/17 19:05 Ketorolac Tromethamine (Toradol Inj) 30 mg IM Q6H PRN PRN Reason: SEE LABEL COMMENTS Stop: 09/03/17 14:05 Measles/Mumps/Rubella Vaccine Live (M-M-R Ii Vaccine Inj) 0.5 ml SQ .ONCE ONE Stop: 08/30/17 16:01 Oxycodone/Acetaminophen (Percocet 5/325 Mg) 1 tab PO Q4H PRN PRN Reason: PAIN SCALE 3 TO 5 Oxycodone/Acetaminophen (Percocet 5/325 Mg) 2 tab PO Q4H PRN PRN Reason: PAIN SCALE 6 TO 10 Sodium Chloride (Ns Flush) 2 ml IV.FLUSH BID [facility] Sodium Chloride (Ns Flush) 2 ml IV.FLUSH UNSCH PRN PRN Reason: FLUSH AFTER USING IV ACCESS Exam Vital signs: Vital Signs 08/29/17 10:33 08/29/17 10:45 08/29/17 13:45 Temperature 98.0 F Pulse Rate 92 H 68 Respiratory Rate 18 18 Blood Pressure 134/82 110/71 08/29/17 14:00 08/29/17 14:15 08/29/17 14:30 Temperature Pulse Rate 66 72 Respiratory Rate 24 20 Blood Pressure 109/67 107/71 110/77 08/29/17 14:45 08/29/17 15:00 08/29/17 15:13 Temperature 97.5 F L 97.5 F L Pulse Rate 58 L 66 Respiratory Rate 20 20 Blood Pressure 120/74 111/74 08/29/17 15:15 08/29/17 16:00 Temperature 97.9 F Pulse Rate 56 L Respiratory Rate 20 Blood Pressure 118/72 Intake & Output 08/28/17 08/29/17 08/29/17 18:59 06:59 18:59 Weight 89 kg Other: Weight On Admission 89 kg Results - Labs CBC & Chem 7: 08/29/17 10:45 Labs: Laboratory Results - last 24 hr 08/29/17 08/29/17 08/29/17 10:45 10:45 10:45 WBC 8.0 RBC 3.91 L Hgb 11.1 L Hct 33.0 L MCV 84.6 MCH 28.3 MCHC 33.5 RDW 13.2 Plt Count 174 MPV 11.2 H Neut % (Auto) 64.7 Lymph % (Auto) 25.2 Millard % (Auto) 7.7 Eos % (Auto) 1.9 Baso % (Auto) 0.5 Neut # (Auto) 5.1 Lymph # (Auto) 2.0 Millard # (Auto) 0.6 Eos # (Auto) 0.2 Baso # (Auto) 0.0 WBC Differential . Differential Comment Auto diff final POC Glucose Urine Color Urine Clarity Urine pH Ur Specific Watkins Urine Protein Urine Glucose (UA) Urine Ketones Urine Occult Blood Urine Nitrate Urine Bilirubin Urine Urobilinogen Ur Leukocyte Esterase Urine RBC Urine WBC Ur Squamous Epith Cells Urine Bacteria Micro UA Comment Urine Culture Comments Urine Opiates Screen Neg Ur Barbiturates Screen Neg Ur Amphetamines Screen Neg U Benzodiazepines Scrn Neg Urine Cocaine Screen Neg U Cannabinoids Screen Neg Blood Type O Positive Antibody Screen Negative 08/29/17 08/29/17 10:45 14:35 WBC RBC Hgb Hct MCV MCH MCHC RDW Plt Count MPV Neut % (Auto) Lymph % (Auto) Millard % (Auto) Eos % (Auto) Baso % (Auto) Neut # (Auto) Lymph # (Auto) Millard # (Auto) Eos # (Auto) Baso # (Auto) WBC Differential Differential Comment POC Glucose 39 L* Urine Color Straw Urine Clarity Clear Urine pH 6.0 Ur Specific Watkins 1.008 Urine Protein Negative Urine Glucose (UA) Negative Urine Ketones Negative Urine Occult Blood Negative Urine Nitrate Negative Urine Bilirubin Negative Urine Urobilinogen Less than 2 Ur Leukocyte Esterase Negative Urine RBC Less than 1 Urine WBC 1 Ur Squamous Epith Cells 1 Urine Bacteria Rare H Micro UA Comment Culture not ind Urine Culture Comments Culture not ind Urine Opiates Screen Ur Barbiturates Screen Ur Amphetamines Screen U Benzodiazepines Scrn Urine Cocaine Screen U Cannabinoids Screen Blood Type Antibody Screen Caprini VTE Risk Assessment Caprini Risk Assessment Model: Point Value = 1 Point Value = 2 Point Value = 3 Point Value = 5 Age 41-60 Minor surgery BMI > 25 kg/m2 Swollen legs Varicose veins or History of unexplained or recurrent spontaneous Oral contraceptives or hormone replacement Sepsis (< 1 month) Serious lung disease, including pneumonia (< 1 month) Abnormal pulmonary function Acute myocardial infarction Congestive heart failure (< 1 month) History of inflammatory bowel disease Medical patient at bed rest Age 61-74 Arthroscopic surgery Major open surgery (> 45 min) Laparoscopic surgery (> 45 min) Malignancy Confined to bed (> 72 hours) Immobilizing plaster cast Central venous access Age >= 75 History of VTE Family history of VTE Factor V Leiden Prothrombin [id number] Lupus anticoagulant Anticardiolipin antibodies Elevated serum homocysteine Heparin-induced thrombocytopenia Other congenital or acquired thrombophilia Stroke (< 1 month) Elective arthroplasty Hip, pelvis, or leg fracture Acute spinal cord injury (< 1 month) Prophylaxis Regimen: Total Risk Factor Score Risk Level Prophylaxis Regimen 0-1 Low Early ambulation 2 Moderate Order ONE of the following: *Sequential Compression Device (SCD) *Heparin 5000 units SQ BID 3-4 Higher Order ONE of the following medications: *Heparin 5000 units SQ TID *Enoxaparin/Lovenox 40 mg SQ daily (WT < 150 kg, CrCl > 30 mL/min) *Enoxaparin/Lovenox 30 mg SQ daily (WT < 150 kg, CrCl > 10-29 mL/min) *Enoxaparin/Lovenox 30 mg SQ BID (WT < 150 kg, CrCl > 30 mL/min) AND/OR *Sequential Compression Device (SCD) 5 or more Highest Order ONE of the following medications: *Heparin 5000 units SQ TID (Preferred with Epidurals) *Enoxaparin/Lovenox 40 mg SQ daily (WT < 150 kg, CrCl > 30 mL/min) *Enoxaparin/Lovenox 30 mg SQ daily (WT < 150 kg, CrCl > 10-29 mL/min) *Enoxaparin/Lovenox 30 mg SQ BID (WT < 150 kg, CrCl > 30 mL/min) AND *Sequential Compression Device (SCD) Assessment and Plan - Attending Attestation The exam, history, and the medical decision-making described in the above note were completed with the assistance of the resident physician. I reviewed and agree with the findings presented. I attest that I had a [id number] encounter with the patient on the same day, and personally performed and documented my assessment and findings in the medical record.
[2017-08-29] MEDS ORDERED: Oxytocin 30 Units/500ml Premix 30 UNITS/500 ML BAG IV.SIG ONE (15:00)
[2017-08-29] MEDS ORDERED: Oxytocin 30 Units/500ml Premix 30 UNITS/500 ML BAG IV.SIG PRN (19:06)
[2017-08-29] MEDS ORDERED: Senna/Docusate Sodium 8.6/50 MG Tablet PO PRN (21:56)
[2017-08-30 09:36] LABS: Hematocrit 29.6 % (35.0-46.0); Hemoglobin 10.1 gm/dL (11.6-15.3); Mean Corpuscular HGB Conc 34.2 % (32.0-36.0); Mean Corpuscular Hemoglobin 28.5 pg (27.0-34.0); Mean Corpuscular Volume 83.6 fL (80.0-100.0); Mean Platelet Volume 10.9 fL (7.0-11.0); Platelet Count 161 th/mm3 (150-450); Red Blood Count 3.54 mil/mm3 (4.00-5.30); Red Cell Distribution Width 12.9 % (11.6-17.2); White Blood Count 15.5 th/mm3 (4.0-11.0)
--- NOTE | 2017-08-30 11:16 | P.PNOB ---
Subjective Post op day: 1 Interval history: Patient is a 22-year-old delivered at 38 weeks and 6 days. Patient is day 1 after repeat section. Patient's pain is well- controlled. Patient reports minimal bleeding. Patient reports eating and drinking without any nausea or vomiting. Patient has passed gas but has not had a bowel movement. Patient denies chest pain and shortness of breath. Patient has been ambulating; she denies lower extremity pain. Patient reports desire for contraception, which she will discuss with her OB provider at her follow-up appointment. Patient has decided to breast-feed. Objective Vital Signs/I&O: Vital Signs 08/29/17 13:45 08/29/17 14:00 08/29/17 14:15 Temperature Pulse Rate 68 66 Respiratory Rate 18 24 Blood Pressure 110/71 109/67 107/71 08/29/17 14:30 08/29/17 14:45 08/29/17 15:00 Temperature 97.5 F L Pulse Rate 72 58 L 66 Respiratory Rate 20 20 20 Blood Pressure 110/77 120/74 111/74 08/29/17 15:13 08/29/17 15:15 08/29/17 16:00 Temperature 97.5 F L 97.9 F Pulse Rate 56 L Respiratory Rate 20 Blood Pressure 118/72 08/29/17 17:19 08/29/17 20:10 08/29/17 23:53 Temperature 97.8 F 97.7 F 97.7 F Pulse Rate 75 60 102 H Respiratory Rate 18 18 18 Blood Pressure 118/82 114/76 125/91 H 08/30/17 04:00 08/30/17 08:00 Temperature 98.4 F 98.3 F Pulse Rate 82 81 Respiratory Rate 18 20 Blood Pressure 110/72 101/69 Intake & Output 08/29/17 08/30/17 08/30/17 18:59 06:59 18:59 Weight 89 kg Other: Weight On Admission 89 kg Result Diagrams: 08/30/17 08:48 Objective Remarks: GENERAL: Well-nourished, well-developed patient. CARDIOVASCULAR: Regular rate and rhythm without murmurs, gallops, or rubs. RESPIRATORY: Breath sounds equal bilaterally. No accessory muscle use. ABDOMEN/GI: Abdomen soft, non-tender, bowel sounds present. Incision: Clean, dry and intact. Fundus: Firm, non-tender at umbilicus. GENITOURINARY: Light to moderate bleeding. EXTREMITIES: No cyanosis or edema, non-tender, without signs of DVT. Medications and IVs: Active Medications Citric Acid/Sodium Citrate (Sodium Citrate/Citric Acid Liq) 30 ml PO REMARKETING MANAGER [facility] Stop: 09/02/17 11:14 Last Admin: 08/29/17 12:22 Dose: 30 ml Diphenhydramine HCl (Benadryl) 25 mg PO Q6H PRN PRN Reason: ITCHING Last Admin: 08/30/17 09:00 Dose: 25 mg Diphtheria/Pertussis/Tetanus Vacc (Boostrix Vaccine Inj) 0.5 ml IM .ONCE ONE Stop: 08/30/17 16:01 Cefazolin Sodium/Dextrose (Ancef 2 Gm Premix Inj) 2 gm in 50 mls @ 100 mls/hr IV.SIG REMARKETING MANAGER [facility] Stop: 09/02/17 11:59 Last Admin: 08/29/17 12:22 Dose: 100 mls/hr Lactated Ringer's (Lr 1000 Ml Inj) 1,000 mls @ 100 mls/hr IV.CONT .Q10H [facility] Stop: 08/30/17 15:05 Last Admin: 08/29/17 23:50 Dose: 100 mls/hr Oxytocin (Pitocin 30 Units/Ns 500 Ml Premix) 30 units in 500 mls @ 100 mls/hr IV.SIG UNSCH X1 PRN PRN Reason: Heavy bleeding Stop: 08/30/17 19:05 Ketorolac Tromethamine (Toradol Inj) 30 mg IM Q6H PRN PRN Reason: SEE LABEL COMMENTS Stop: 09/03/17 14:05 Last Admin: 08/29/17 18:18 Dose: 30 mg Measles/Mumps/Rubella Vaccine Live (M-M-R Ii Vaccine Inj) 0.5 ml SQ .ONCE ONE Stop: 08/30/17 16:01 Ondansetron HCl (Zofran Odt) 4 mg PO Q6H PRN PRN Reason: NAUSEA OR VOMITING Last Admin: 08/29/17 22:45 Dose: 4 mg Ondansetron HCl (Zofran Inj) 4 mg IV.PUSH Q6H PRN PRN Reason: NAUSEA OR VOMITING Oxycodone/Acetaminophen (Percocet 5/325 Mg) 1 tab PO Q4H PRN PRN Reason: PAIN SCALE 3 TO 5 Oxycodone/Acetaminophen (Percocet 5/325 Mg) 2 tab PO Q4H PRN PRN Reason: PAIN SCALE 6 TO 10 Senna/Docusate Sodium (Caridad-Colace) 2 tab PO Q12H PRN PRN Reason: CONSTIPATION Last Admin: 08/30/17 09:00 Dose: 2 tab Sodium Chloride (Ns Flush) 2 ml IV.FLUSH BID SHARAN Sodium Chloride (Ns Flush) 2 ml IV.FLUSH UNSCH PRN PRN Reason: FLUSH AFTER USING IV ACCESS Assessment and Plan - Plan Patient is a 22-year-old delivered at 38 weeks and 6 days. Patient is day 1 after repeat section. * Continue routine care. * Motrin and Percocet when necessary for pain. * Encourage OOB. * One week for incision check. * Pelvic rest for 6 weeks will need follow-up appointment at that time. * Contraception: will discuss with her OB provider at follow-up appointment. * Anticipate discharge tomorrow or Friday. - Attending Attestation The exam, history, and the medical decision-making described in the above note were completed with the assistance of the resident physician. I reviewed and agree with the findings presented. I attest that I had a [id number] encounter with the patient on the same day, and personally performed and documented my assessment and findings in the medical record.
[2017-08-30] MEDS ORDERED: Simethicone 80 MG Chew Tablet PO PRN (15:23)
[2017-08-30] MEDS ORDERED: Measles/Mumps/Rubella Vaccine Inj 0.5 ML Vial SQ ONE (16:00)
[2017-08-30] MEDS ORDERED: Diphtheria/Tetanus/Pertussis Vaccine Inj 0.5 ML Syringe IM ONE (16:00)
[2017-08-30] MEDS: Ibuprofen 600 MG Tablet PO PRN ×2 (17:08→22:31)
[2017-08-30 21:01] VITALS: RESP 18
[2017-08-31] MEDS: Ibuprofen 600 MG Tablet PO PRN ×2 (05:50→13:11)
[2017-08-31 08:10] VITALS: BP 97/65; PULSE 79; TEMP 98.2
--- NOTE | 2017-08-31 09:16 | P.PNOB ---
Subjective Post op day: 2 Interval history: Patient is a 22-year-old delivered at 38 weeks and 6 days. Patient is day 2 after repeat section. Patient's pain is well- controlled. Patient reports minimal bleeding. Patient reports eating and drinking without any nausea or vomiting. Patient has passed gas but has not had a bowel movement. Patient denies chest pain and shortness of breath. Patient has been ambulating; she denies lower extremity pain. Patient reports desire for contraception, which she will discuss with her OB provider at her follow-up appointment. Patient has decided to breast-feed. Objective Vital Signs/I&O: Vital Signs 08/30/17 12:00 08/30/17 20:00 08/31/17 08:00 Temperature 98.4 F 98.6 F 98.2 F Pulse Rate 78 67 79 Respiratory Rate 18 18 Blood Pressure 142/83 H 109/58 L 97/65 L Result Diagrams: 08/30/17 08:48 Objective Remarks: GENERAL: Well-nourished, well-developed patient. CARDIOVASCULAR: Regular rate and rhythm without murmurs, gallops, or rubs. RESPIRATORY: Breath sounds equal bilaterally. No accessory muscle use. ABDOMEN/GI: Abdomen soft, non-tender, bowel sounds present. Incision: Clean, dry and intact. Fundus: Firm, non-tender at umbilicus. GENITOURINARY: Light to moderate bleeding. EXTREMITIES: No cyanosis or edema, non-tender, without signs of DVT. Medications and IVs: Active Medications Citric Acid/Sodium Citrate (Sodium Citrate/Citric Acid Liq) 30 ml PO SOFTWARE TEST TECHNICIAN [facility] Stop: 09/02/17 11:14 Last Admin: 08/29/17 12:22 Dose: 30 ml Diphenhydramine HCl (Benadryl) 25 mg PO Q6H PRN PRN Reason: ITCHING Last Admin: 08/30/17 14:49 Dose: 25 mg Cefazolin Sodium/Dextrose (Ancef 2 Gm Premix Inj) 2 gm in 50 mls @ 100 mls/hr IV.SIG SOFTWARE TEST TECHNICIAN [facility] Stop: 09/02/17 11:59 Last Admin: 08/29/17 12:22 Dose: 100 mls/hr Ketorolac Tromethamine (Toradol Inj) 30 mg IM Q6H PRN PRN Reason: SEE LABEL COMMENTS Stop: 09/03/17 14:05 Last Admin: 08/29/17 18:18 Dose: 30 mg Ondansetron HCl (Zofran Odt) 4 mg PO Q6H PRN PRN Reason: NAUSEA OR VOMITING Last Admin: 08/29/17 22:45 Dose: 4 mg Ondansetron HCl (Zofran Inj) 4 mg IV.PUSH Q6H PRN PRN Reason: NAUSEA OR VOMITING Oxycodone/Acetaminophen (Percocet 5/325 Mg) 1 tab PO Q4H PRN PRN Reason: PAIN SCALE 3 TO 5 Last Admin: 08/31/17 03:11 Dose: 1 tab Oxycodone/Acetaminophen (Percocet 5/325 Mg) 2 tab PO Q4H PRN PRN Reason: PAIN SCALE 6 TO 10 Senna/Docusate Sodium (Caridad-Colace) 2 tab PO Q12H PRN PRN Reason: CONSTIPATION Last Admin: 08/30/17 09:00 Dose: 2 tab Simethicone (Mylicon Chew) 80 mg PO QID PRN PRN Reason: GAS RETENTION Last Admin: 08/30/17 17:08 Dose: 80 mg Sodium Chloride (Ns Flush) 2 ml IV.FLUSH BID SHARAN Sodium Chloride (Ns Flush) 2 ml IV.FLUSH UNSCH PRN PRN Reason: FLUSH AFTER USING IV ACCESS Assessment and Plan - Diagnosis (1) delivery delivered Code(s): O82 - Encounter for delivery without indication Status: Acute (2) History of delivery Code(s): Z98.891 - History of uterine scar from previous surgery Status: Acute (3) IUGR (intrauterine growth restriction) Status: Acute - Plan Patient is a 22-year-old delivered at 38 weeks and 6 days. Patient is day 2 after repeat section. * Continue routine care. * Motrin and Percocet when necessary for pain. * Encourage OOB. * One week for incision check. * Pelvic rest for 6 weeks will need follow-up appointment at that time. * Contraception: will discuss with her OB provider at follow-up appointment. * Anticipate discharge today.
== END 2017-08-31 13:42 | disposition home or self-care (01) ==
LOC: H2E 08-29 10:14 → EDSTATUS 08-29 12:30 → H1EA 08-29 15:38
PROVIDERS: ADMIT Obstetrics & Gynecology; ATTEND Obstetrics & Gynecology
DX: Z37.0 Single live birth; O36.5930 Maternal care for other known or suspected poor fetal growth, third trimester, not applicable or unspecified; O34.211 Maternal care for low transverse scar from previous cesarean delivery; Z3A.38 38 weeks gestation of pregnancy; Z23 Encounter for immunization